=== PATIENT | female | born 1965 | race Caucasian/White ===

== ENCOUNTER 2023-08-07 13:48 | Emergency (ER) | payer BC, SELFPAY ==
[2023-08-07 13:56] VITALS: BP 139/52; PULSE 87; RESP 18; TEMP 36.6; O2SAT 97; BMI 37.8
--- NOTE | 2023-08-07 14:09 | ED_ITS ---
Discharge Plan Disposition Patient Disposition: Home, Self-Care Condition: Good Prescriptions Prescriptions: No Action cyclobenzaprine [Flexeril] 10 mg Tablet 10 mg PO TID PRN (Reason: Pain) citalopram [Celexa] 20 mg Tablet 20 mg PO DAILY losartan 25 mg Tablet 25 mg PO DAILY loratadine [Claritin] 10 mg Tablet 10 mg PO DAILY Vitamin D3 100 mcg (4,000 unit) Capsule 50,000 unit PO WEEKLY omeprazole 20 mg Tablet,Disintegrat, Delay Rel 20 mg PO DAILY Referrals Follow up/Referrals: Nate Tabor [Primary Care Provider] - See instructions Activity Restrictions/Add. Instructions Additional Instructions/Restrictions: Rest ice elevation as needed for symptomatic treatment along with alternating Tylenol every 4 hours Motrin as needed for pain and swelling. Return to ER or P for further evaluation if any symptoms worsen or change. Clinical Impressions Clinical Impression: Contusion of knee, right Qualifiers: Encounter type: initial encounter Qualified Code(s): S80.01XA - Contusion of right knee, initial encounter Abrasion of knee, right Qualifiers: Encounter type: initial encounter Qualified Code(s): S80.211A - Abrasion, right knee, initial encounter Discharge ED Provider: Kaden Oglesby General Adult HPI <TIERA Shirley - Last Filed: 08/07/23 14:54> General Chief complaint: Fall Stated complaint: AO3/19, pain in Rt knee Time Seen by Provider: 08/07/23 13:50 Mode of Arrival: Wheelchair Source of Information: Patient Limitations: No Limitations Description of Symptoms (Recalled from ER Triage Doc. by RN): Pt. here with compaints of right leg/ knee pain from a fall about 20 minutes ago. She was getting out of her car and got tangled up in her purse straps and feel on the concrete. She denies hitting her head or LOC. She did scrap her knee on the concrete and has an abrasion. History of Present Illness HPI narrative: Patient tripped and fell a day and right knee. She is able to bear weight immediately after currently. She denies chest pain fever chills hemoptysis hematochezia melena via consciousness. Related Data Home Medications Medication Instructions Recorded Confirmed cholecalciferol (vitamin D3) 100 50,000 unit PO WEEKLY 08/07/23 08/07/23 mcg (4,000 unit) capsule citalopram 20 mg tablet (Celexa) 20 mg PO DAILY 08/07/23 08/07/23 cyclobenzaprine 10 mg tablet 10 mg PO TID PRN Pain 08/07/23 08/07/23 loratadine 10 mg tablet (Claritin) 10 mg PO DAILY 08/07/23 08/07/23 losartan 25 mg tablet 25 mg PO DAILY 08/07/23 08/07/23 omeprazole 20 mg delayed 20 mg PO DAILY 08/07/23 08/07/23 release,disintegrating tablet Allergies Allergy/AdvReac Type Severity Reaction Status Date / Time No Known Allergies Allergy Verified 08/07/23 14:05 [facility] <TIERA Shirley - Last Filed: 08/07/23 14:54> [facility] Disclaimer: The information contained in this section may have been updated after the patient was seen, as this information can be updated by other users. Medical History (Updated 08/07/23 @ 14:47 by TIERA Shirley) Vitamin D deficiency Back pain Depression Allergies GERD (gastroesophageal reflux disease) Hypertension Carpal tunnel syndrome on both sides Surgical History (Updated 08/07/23 @ 14:05 by Sivan Buckner RN) History of carpal tunnel release of both wrists Previous back surgery History of cholecystectomy History of appendectomy Social History (Updated 08/07/23 @ 14:05 by Sivan Buckner RN) Smoking Status: Current every day smoker alcohol intake: never current occupational status: disabled Travel in the last 8 weeks: None <TIERA Shirlye - Last Filed: 08/07/23 14:54> ROS Obtained: Yes Systems reviewed as appropriate & no additional complaints except as documented Physical Exam <TIERA Shirley - Last Filed: 08/07/23 14:54> General General appearance: alert and in no apparent distress Head Head exam: atraumatic and normal inspection Eye Eye exam: Present normal appearance Respiratory Respiratory exam: Present normal lung sounds bilaterally Cardiovascular Cardiovascular exam: Present regular rate and normal rhythm Neurological Exam Neurological exam: Present alert and oriented X3 Other Other exam information: 300 extremities are intact grossly to exam full range of motion. No signs of trauma or deformity. In the right lower extremity there is an abrasion anterior portion infrapatellar area that is currently hemostatic. No bony deformity n oted. There is tenderness to palpation about the patella plateau. No joint effusion. Patient neurovascular intact. Medical Decision Making <TIERA Shirley - Last Filed: 08/07/23 14:54> Medical Records Medical records reviewed: Yes I reviewed the patient's medical records. Handy Inquiry Pt receiving controlled substance: No Vital Signs: 08/07/23 13:56 08/07/23 14:55 Temperature 97.8 F 97.8 F Temperature Source Oral Pulse Rate 96 H Pulse Rate [Right Brachial] 87 Respiratory Rate 18 16 Blood Pressure 112/61 Blood Pressure [Right Arm] 139/52 L Blood Pressure Mean [Right Arm] 81 Blood Pressure Source Automatic Cuff Blood Pressure Source [Right Arm] Automatic Cuff Blood Pressure Position [Right Arm] Sitting 02 Sat by Pulse Oximetry 97 Oxygen Delivery Method Room Air Room Air Orders (Tests/Meds): ORDERS Category Date Time Status Knee XR right 3 views [XR knee RT 3V] Stat Exams 08/07/23 14:11 Taken Medical Decision Narrative: In summary patient is a 58-year-old female who presents to the emergency dep artment for evaluation of an accidental fall right knee contusion. Patient is dynamically stable upon arrival, afebrile. Physical exam is focally positive for skin abrasion patellar anterior lower extremity. No bony deformity noted. Patient is neurovascular intact distally.. Differential diagnosis includes superficial abrasion, contusion, fracture etc. Initial workup will be conducted with radiographic imaging. No interventions required currently. Initial workup reviewed by me and my informal interpretation of her plain film x-ray shows no acute fracture or effusion radiologist read pending. Given this appropriate for discharge with instructions for ice as needed for swelling along with Tylenol alternating with with Motrin as needed for pain and swelling. <Kaden Oglesby MD - Last Filed: 08/07/23 15:43> Vital Signs: 08/07/23 13:56 08/07/23 14:55 Temperature 97.8 F 97.8 F Temperature Source Oral Pulse Rate 96 H Pulse Rate [Right Brachial] 87 Respiratory Rate 18 16 Blood Pressure 112/61 Blood Pressure [Right Arm] 139/52 L Blood Pressure Mean [Right Arm] 81 Blood Pressure Source Automatic Cuff Blood Pressure Source [Right Arm] Automatic Cuff Blood Pressure Position [Right Arm] Sitting 02 Sat by Pulse Oximetry 97 Oxygen Delivery Method Room Air Room Air Orders (Tests/Meds): ORDERS Category Date Time Status Knee XR right 3 views [XR knee RT 3V] Stat Exams 08/07/23 14:11 Taken Medical Decision Narrative: In summary patient is a 58-year-old female who presents to the emergency department for evaluation of an accidental fall right knee contusion. Patient is dynamically stable upon arrival, afebrile. Physical exam is focally positive for skin abrasion patellar anterior lower extremity. No bony deformity noted. Patient is neurovascular intact distally.. Differential diagnosis includes superficial abrasion, contusion, fracture etc. Initial workup will be conducted with radiographic imaging. No interventions required currently. Initial workup reviewed by me and my informal interpretation of her plain film x-ray shows no acute fracture or effusion radiologist read pending. Given this appropriate for discharge with instructions for ice as needed for swelling along with Tylenol alternating with with Motrin as needed for pain and swelling. I was consulted by the BOB, and we discussed the complexity of the problems being addressed. I approved the treatment and management plan for this patient?s care in the Emergency Department, thus performing a substantive portion of the medical decision making. Kaden Oglesby MD Critical Care <TIERA Shirley - Last Filed: 08/07/23 14:54> Critical Care Time Critical Care Time: No
--- NOTE | 2023-08-07 14:11 | XR_ITS ---
FINAL REPORT CLINICAL HISTORY: fall, contusion FINDINGS: Right knee Three views were obtained. There is no acute fracture or dislocation. The joint spaces appear normal. No joint effusion is identified. No soft tissue abnormality is identified. IMPRESSION: No acute process. Reviewed, Interpreted and Dictated by Kendrick Jeong III, MD Transcribed by Katina Mckeon Authenticated and [facility]
--- NOTE | 2023-08-07 14:27 | PC.NURSE ---
PT gone to RAD via wheelchair
--- NOTE | 2023-08-07 14:35 | PC.NURSE ---
PT returned from RAD
[2023-08-07 14:55] VITALS: BP 112/61; PULSE 96; RESP 16; TEMP 36.6; O2SAT 95
== END 2023-08-07 14:57 | disposition home or self-care (01) ==
PROVIDERS: Emergency Provider Emergency Medicine; PCP Physician Assistant
DX: S80.01XA Contusion of right knee, initial encounter (principal); M79.604 Pain in right leg; V48.4XXA Person boarding or alighting a car injured in noncollision transport accident, initial encounter; I10 Essential (primary) hypertension; K21.9 Gastro-esophageal reflux disease without esophagitis; F17.200 Nicotine dependence, unspecified, uncomplicated
CPT/HCPCS: 73562; 99283

== ENCOUNTER 2023-09-27 10:56 | Outpatient (POV) | payer BC, SELFPAY ==
[2023-09-27 11:01] VITALS: BP 169/87; PULSE 84; RESP 18; O2SAT 96; BMI 37.8
--- NOTE | 2023-09-27 11:20 | A.OFFVIS_ITS ---
HPI Data of Consult Patient: new to practice Consult date: 09/27/23 Requesting Physician: Jahaira Hwang APRN Primary Care Provider: Nate Tabor Consult Narrative Reason for consult: Low back pain pain History of present illness: Ms. Morgan is a 58 year old female who presents today as a new patient. She is a referral from [facility]. Today she rates her pain a 7 out of 10. Patient states her pain is all in her low back with radiating pain to her bilateral lower extremities. Patient does state this is a aching sensation with heaviness in her legs and will have numbness and tingling with prolonged walking or standing. Patient states this has been going on for years and progressively worsened. Patient did end up having 2 back surgeries including a discectomy and a fusion in the past. She states that she has been back to the neurosurgeon and he is stating that she may benefit from additional fusion above her prior 1. Patient states that she would like to try conservative treatment first. Patient does state the pain interferes with her ability perform activities of daily living such as cooking and cleaning. She states even the smallest activities such as cleaning around her house takes it out of her and she has to stop and take a break. Patient has tried [id number] Tylenol and ibuprofen along with heat and ice and topicals with minimal relief. Patient has had physical therapy that made her symptoms worsen and has also been to the chiropractor however during the 1 visit she went they cracked her neck and it scared her as to where she did not ever go back. Patient has tried to continue at home exercising and stretching for longer than 6 weeks with minimal impro vement.Patient is prescribed gabapentin from an outside provider. Her Handy has been reviewed and is appropriate. CC: Jahaira Hwang APRN [facility] Disclaimer: The information contained in this section may have been updated after the patient was seen, as this information can be updated by other users. Medical History (Updated 09/27/23 @ 12:00 by Jahaira Hwang APRN) Vitamin D deficiency Back pain Depression Allergies GERD (gastroesophageal reflux disease) Hypertension Carpal tunnel syndrome on both sides Surgical History (Updated 09/27/23 @ 11:22 by Jahaira Hwang APRN) History of carpal tunnel release of both wrists Previous back surgery History of cholecystectomy History of appendectomy Social History Smoking Status: Current every day smoker alcohol intake: never current occupational status: other Travel in the last 8 weeks: None Review of Systems Review of Systems Review of systems:: pertinent systems reviewed and negative unless documented below Review of systems (narrative): Review of Systems: General: No recent weight changes, no fever, no sleep disturbances Respiratory: No cough, no shortness of air, no recurring pulmonary infections Cardiovascular/peripheral vascular: No chest pain, no palpitations, no edema, no shortness of breath Gastrointestinal: No new onset incontinence, normal bowel movements reported Genitourinary: No new onset incontinence Musculoskeletal: Low back pain, bilateral leg pain Psychiatric: [Normal mood/affect] Neurological: [Denies weakness in extremities], [denies balance issues] Meds Home Medications and Allergies Home Medications Medication Instructions Recorded Confirmed Type cholecalciferol (vitamin D3) 100 50,000 unit PO WEEKLY 08/07/23 09/27/23 History mcg (4,000 unit) capsule citalopram 20 mg tablet (Celexa) 20 mg PO DAILY 08/07/23 09/27/23 History cyclobenzaprine 10 mg tablet 10 mg PO TID PRN Pain 08/07/23 09/27/23 History loratadine 10 mg tablet (Claritin) 10 mg PO DAILY 08/07/23 09/27/23 History losartan 25 mg tablet 25 mg PO DAILY 08/07/23 09/27/23 History omeprazole 20 mg delayed 20 mg PO DAILY 08/07/23 09/27/23 History release,disintegrating tablet New Prescriptions to Start Prescriptions: Allergies Allergy/AdvReac Type Severity Reaction Status Date / Time No Known Allergies Allergy Verified 09/27/23 11:01 Objective Narrative: Physical Exam: General: Alert and oriented x3, no acute distress, pleasant and cooperative Lungs: Respirations even and unlabored, symmetrical chest expansion Eyes: PERRL Musculoskeletal: Flexion and extension of lumbar [spine] somewhat guarded secondary to pain, [antalgic gait noted] Neurological: Speech clear, no gross sensory deficit Additional findings Additional findings: 06/04/2023 Lumbar MRI without contrast Findings: Benign cystic changes and atrophy of the right kidney are noted. Paraspinal soft tissues otherwise grossly unremarkable. Marrow signal generally age-appropriate. Distal cord and conus medullaris have a grossly normal appearance at the tip of the conus at the level of L1-L2. T9-10 through T12-L1 disc are unremarkable and foramina patent. L1-L2: Disc desiccation and narrowing with mild circumferential disc bulge. Mild hypertrophic ligamentum facet changes. No significant spinal stenosis. Foramina patent L2-L3: Disc intact foramina patent. Mild hypertrophic ligament facet changes L3-L4: Disc desiccation without degenerative narrowing. Mild to moderate circumferential disc bulge delimited centrally by the PLL. Moderate hypertrophic ligamentum facet changes contouring the thecal sac. These factors result in mild spinal stenosis. Moderate left and mild right foraminal stenosis by endplate osteophytic disc complex L4-L5: Grade 1 anterior listhesis L4. Disc desiccation of the disc with mild degenerative narrowing. Moderate circumferential disc bulge. Advanced hypertrophic ligament changes and facet changes triangulating the thecal sac. Mild effusion of the facet joints without synovial cyst formation. These factors combined to produce severe spinal stenosis to 5 to 6 mm. Moderate bilateral foraminal stenosis by endplate osteophytic disc complex. L5-S1: Advanced degenerative narrowing of the disc. Prominent type II degenerative endplate changes. There is circumferential disc bulge partially overlaid by endplate spur. There is a right paracentral protrusion augmenting the disc bulge and extending below the level of the disc space. Advanced hypertrophic ligamentum facet changes. These factors result in moderate to severe spinal stenosis. Disc protrusion approximates the left S1 nerve root and displaces the right S1 nerve root. Severe bilateral foraminal stenosis by endplate osteophytic disc complex. Assessment and Plan *Assessment and plan (1) Degenerative disc disease, lumbar: Status: Acute Category: Medical Code(s): M51.36 - Other intervertebral disc degeneration, lumbar region (2) History of lumbar discectomy: Status: Acute Category: Surgical Code(s): Z98.890 - Other specified postprocedural states (3) History of lumbar fusion: Status: Acute Category: Surgical Code(s): Z98.1 - Arthrodesis status (4) Chronic low back pain: Status: Acute Qualifiers: Back pain laterality: bilateral Sciatica presence: with sciatica Sciatica laterality: sciatica of right side Qualified Code(s): M54.41 - Lumbago with sciatica, right side; G89.29 - Other chronic pain Category: Medical Code(s): M54.50 - Low back pain, unspecified; G89.29 - Other chronic pain (5) Lumbar facet arthropathy: Status: Acute Category: Medical Code(s): M47.816 - Spondylosis without myelopathy or radiculopathy, lumbar region (6) Lumbar spinal stenosis: Status: Acute Qualifiers: Neurogenic claudication status: with neurogenic claudication Qualified Code(s): M48.062 - Spinal stenosis, lumbar region with neurogenic claudication Category: Medical Code(s): M48.061 - Spinal stenosis, lumbar region without neurogenic claudication (7) Lumbar spondylosis: Status: Acute Category: Medical Code(s): M47.816 - Spondylosis without myelopathy or radiculopathy, lumbar region Plan Patient is experiencing significant pain throughout her low back with radiating symptoms down into her lower extremities. Patient did have limited range of motion of her lumbar spine with significant findings on her MRI showing the most stenosis at the L4-L5 and L5-S1 levels. I have discussed with the patient that she may benefit from a lumbar epidural. Risk and benefits were discussed with patient and she would like to proceed forward with this plan of care. Patient is not on any blood thinners. Patient has tried and failed conservative therapy including failed back surgery. Patient will be scheduled for a LESI L4-L5 under fluoroscopy. Patient has been instructed to contact the clinic with any concerns before the next appointment. Dr. Marsh has reviewed this note and agrees with this plan of care. This note was dictated using voice recognition software and make contain errors or omissions.
== END 2023-09-27 23:59 | disposition home or self-care (01) ==
LOC: SC.PAIN 10:57
PROVIDERS: PCP Physician Assistant; Visit Provider Nurse Practitioner Family
DX: M51.36 Other intervertebral disc degeneration, lumbar region (principal); Z98.890 Other specified postprocedural states; Z98.1 Arthrodesis status; M54.41 Lumbago with sciatica, right side; G89.29 Other chronic pain; M47.816 Spondylosis without myelopathy or radiculopathy, lumbar region; M48.062 Spinal stenosis, lumbar region with neurogenic claudication; M43.26 Fusion of spine, lumbar region
CPT/HCPCS: 99202; G0463

== ENCOUNTER 2023-10-16 14:14 | Day surgery (SDC) | payer BC, SELFPAY ==
[2023-10-16 14:40] VITALS: BP 150/87; PULSE 95; RESP 18; TEMP 36.6; O2SAT 96; BMI 37.8
--- NOTE | 2023-10-16 14:56 | P.PCN_ITS ---
Procedure Date: 10/16/23 Time: 14:50 Anesthesiologist:: Rafat Caceres CRNA Complications:: None Pre-procedure Diagnosis:: Degenerative disc lumbar spine multilevels. Lumbar radiculopathy. Lumbar spondylosis. Multilevel lumbar facet arthropathy. Lumbar postlaminectomy syndrome. Post-procedure Diagnosis:: Same. Indications for Procedure:: Patient is a very pleasant 58-year-old female comes our clinic today for lumbar epidural steroid injection. Patient is status post thoracic spine surgeries including discectomy and fusion in the past. She reports low back pain as well as bilateral hip and leg radicular symptoms. She rates her pain 7/10. Procedure Details:: Procedure: Lumbar epidural steroid injection under fluoroscopy Informed consent was obtained and the risks and benefits of the procedure were explained to the patient. The patient was taken to the procedure room and noninvasive monitors placed, including noninvasive blood pressure cuff and pulse oximeter. The back was viewed using C-arm Fluoroscopy and prepped using C hloraprep as a cleansing solution and the L4-L5 interspace was palpated. Skin and subcutaneous tissues were anesthetized using lidocaine 1.5% and a 25-gauge needle. After this, an 18-gauge Touhy epidural needle was placed into the L4-L5 interspace and advanced using fluoroscopic guidance and loss of resistance to air until the epidural space was encountered. After confirmation of needle placement in the epidural space, with dye, a solution containing normal saline, 3 mL and Depo-Medrol 80 mg were incrementally injected into the lumbar epidural space. The patient tolerated the procedure well with no complications. The patient was observed in the Pain Clinic and then discharged home neurologically intact. Plan and Disposition:: Patient was discharged without incident.
[2023-10-16 15:04] VITALS: BP 165/85; PULSE 80; RESP 18; O2SAT 98
[2023-10-16] MEDS: methylPREDNISolone ACETATE 80MG/ML VIAL 80 MG (15:23)
== END 2023-10-16 15:05 | disposition home or self-care (01) ==
PROVIDERS: PCP Physician Assistant; Visit Provider Nurse Anesthetist, Certified Registered
DX: M51.16 Intervertebral disc disorders with radiculopathy, lumbar region (principal); M47.26 Other spondylosis with radiculopathy, lumbar region; M96.1 Postlaminectomy syndrome, not elsewhere classified
CPT/HCPCS: 62323; J1010

== ENCOUNTER 2023-11-01 12:59 | Outpatient (POV) | payer BC, SELFPAY ==
[2023-11-01 13:24] VITALS: BP 162/84; BP 184/85; PULSE 77; RESP 16; O2SAT 96; BMI 37.8
--- NOTE | 2023-11-01 13:47 | A.OFFVIS_ITS ---
[facility] Pain Management SOAP Note Subjective:: Patient is a pleasant 58-year-old female who presents today for follow-up of lumbar epidural steroid injection L4-L5 under fluoroscopy on 10/16/2023. Today she rates her pain a 2 out of 10. Patient states she has had at least 75% improvement following this injection and feels like it is still helping. Patient does state that it has taken a couple days for it initially to kick in but she has been able to increase her activity with overall decreased pain and feels much more functional. Her Handy has been reviewed and is appropriate. Review of Systems: General: No recent weight changes, no fever, no sleep disturbances Respiratory: No cough, no shortness of air, no recurring pulmonary infections Cardiovascular/peripheral vascular: No chest pain, no palpitations, no edema, no shortness of breath Gastrointestinal: No new onset incontinence, normal bowel movements reported Genitourinary: No new onset incontinence Musculoskeletal: Low back pain Psychiatric: [Normal mood/affect] Neurological: [Denies weakness in extremities], [denies balance issues] Objective:: Physical Exam: General: Alert and oriented x3, no acute distress, pleasant and cooperative Lungs: Respirations even and unlabored, symmetrical chest expansion Eyes: PERRL Musculoskeletal: Flexion and extension of lumbar [spine] somewhat guarded secondary to pain, [antalgic gait noted] Neurological: Speech clear, no gross sensory deficit Assessment:: Degenerative disc disease of lumbar spine with lumbar radiculopathy symptoms Plan:: Patient has had significant improvement following her lumbar epidural and does not require any additional injection therapy at this time. Patient will return to clinic in 1 month for reevaluation of symptoms and plan of care. Patient has been instructed to contact the clinic with any concerns before the next appointment. Dr. Marsh has reviewed this note and agrees with this plan of care. This note was dictated using voice recognition software and make contain errors or omissions. [facility] Disclaimer: The information contained in this section may have been updated after the patient was seen, as this information can be updated by other users. Medical History Vitamin D deficiency Back pain Depression Allergies GERD (gastroesophageal reflux disease) Hypertension Carpal tunnel syndrome on both sides Surgical History History of carpal tunnel release of both wrists Previous back surgery History of cholecystectomy History of appendectomy Social History Smoking Status: Current every day smoker alcohol intake: never current occupational status: other Travel in the last 8 weeks: None
== END 2023-11-01 23:59 | disposition home or self-care (01) ==
LOC: SC.PAIN 13:00
PROVIDERS: PCP Physician Assistant; Visit Provider Nurse Practitioner Family
DX: M51.16 Intervertebral disc disorders with radiculopathy, lumbar region (principal)
CPT/HCPCS: 99212; G0463

== ENCOUNTER 2023-11-29 13:50 | Outpatient (POV) | payer BC, SELFPAY ==
[2023-11-29 14:00] VITALS: BP 182/85; BP 199/80; PULSE 78; RESP 18; O2SAT 96; BMI 37.8
--- NOTE | 2023-11-29 14:29 | EXP.PAIN.SOA ---
[facility] Disclaimer: The information contained in this section may have been updated after the patient was seen, as this information can be updated by other users. Medical History (Updated 11/29/23 @ 14:32 by Jahaira Hwang APRN) Vitamin D deficiency Back pain Depression Allergies GERD (gastroesophageal reflux disease) Hypertension Carpal tunnel syndrome on both sides Surgical History History of carpal tunnel release of both wrists Previous back surgery History of cholecystectomy History of appendectomy Social History Smoking Status: Current every day smoker alcohol intake: never current occupational status: other Travel in the last 8 weeks: None PM Subjective & Objective Subjective Subjective:: Patient is a pleasant 58-year-old female who presents today with follow-up. Today she rates her pain a 4 out of 10. Patient denies any new trauma or injury. Patient does state that she feels like her last injection is starting to wear off. Patient states that she has been experiencing little bit more pain and states that there have been random moments of where the pain will get much worse of a 6 out of 10. Patient does state that she would like to go ahead and get a repeat injection because she did have some much improvement with her last lumbar epidural of 75%. Patient had this done in September. Patient states that her pain is an aching, throbbing sensation with numbness and tingling down into her extremities and does interfere with her ability perform activities of daily living such as cooking and cleaning. Patient does state from her last visit she did get started on Mounjaro injections and that these are given once a week. She states the initial injection she had significant swelling in her leg on the left side however since then it has resolved. Her Handy has been reviewed and is appropriate. Review of Systems: General: No recent weight changes, no fever, no sleep disturbances Respiratory: No cough, no shortness of air, no recurring pulmonary infections Cardiovascular/peripheral vascular: No chest pain, no palpitations, no edema, no shortness of breath Gastrointestinal: No new onset incontinence, normal bowel movements reported Genitourinary: No new onset incontinence Musculoskeletal: Low back pain, leg pain Psychiatric: [Normal mood/affect] Neurological: [Denies weakness in extremities], [denies balance issues] Pain at rest (0-10 scale): 6 Objective Objective:: Physical Exam: General: Alert and oriented x3, no acute distress, pleasant and cooperative Lungs: Respirations even and unlabored, symmetrical chest expansion Eyes: PERRL Musculoskeletal: Flexion and extension of lumbar [spine] somewhat guarded secondary to pain, [antalgic gait noted] Neurological: Speech clear, no gross sensory deficit Has patient had previous pain injection?: No Conservative treatment options previously tried: Home exercise plan Length of treatment: More than 6 weeks and Prescription medications Length of treatment: More than 6 weeks Meds Home Medications and Allergies Home Medications Medication Instructions Recorded Confirmed Type cholecalciferol (vitamin D3) 100 50,000 unit PO WEEKLY 08/07/23 11/29/23 History mcg (4,000 unit) capsule citalopram 20 mg tablet (Celexa) 20 mg PO DAILY 08/07/23 11/29/23 History cyclobenzaprine 10 mg tablet 10 mg PO TID PRN Pain 08/07/23 11/29/23 History loratadine 10 mg tablet (Claritin) 10 mg PO DAILY 08/07/23 11/29/23 History losartan 25 mg tablet 25 mg PO DAILY 08/07/23 11/29/23 History omeprazole 20 mg delayed 20 mg PO DAILY 08/07/23 11/29/23 History release,disintegrating tablet New Prescriptions to Start Prescriptions: Allergies Allergy/AdvReac Type Severity Reaction Status Date / Time No Known Allergies Allergy Verified 09/27/23 11:01 Assessment and Plan *Assessment and plan (1) Lumbar spondylosis: Status: Acute Category: Medical Code(s): M47.816 - Spondylosis without myelopathy or radiculopathy, lumbar region (2) Lumbar spinal stenosis: Status: Acute Qualifiers: Neurogenic claudication status: with neurogenic claudication Qualified Code(s): M48.062 - Spinal stenosis, lumbar region with neurogenic claudication Category: Medical Code(s): M48.061 - Spinal stenosis, lumbar region without neurogenic claudication (3) Lumbar facet arthropathy: Status: Acute Category: Medical Code(s): M47.816 - Spondylosis without myelopathy or radiculopathy, lumbar region (4) Chronic low back pain: Status: Acute Qualifiers: Back pain laterality: bilateral Sciatica presence: with sciatica Sciatica laterality: sciatica of right side Qualified Code(s): M54.41 - Lumbago with sciatica, right side; G89.29 - Other chronic pain Category: Medical Code(s): M54.50 - Low back pain, unspecified; G89.29 - Other chronic pain (5) History of lumbar fusion: Status: Acute Category: Surgical Code(s): Z98.1 - Arthrodesis status (6) History of lumbar discectomy: Status: Acute Category: Surgical Code(s): Z98.890 - Other specified postprocedural states (7) Degenerative disc disease, lumbar: Status: Acute Category: Medical Code(s): M51.36 - Other intervertebral disc degeneration, lumbar region (8) Lumbar radiculopathy: Status: Acute Category: Medical Code(s): M54.16 - Radiculopathy, lumbar region Plan Patient is starting to experience worsening pain in her low back and legs with limited range of motion. I have discussed with the patient risk and benefits of the repeat lumbar epidural steroid injection and she would like to proceed forward with this plan of care. Patient is not on any blood thinners. I have counseled her that we will confirm that the Mounjaro will not interfere with this injection as well. Patient is agreeable to this. I have also counseled the patient that we will plan on doing her injection around January 15 which would allow for the 3-month window between her injections. Patient is agreeable to this. Patient has nearly gone 2 months of improvement at 75% relief with her last injection that was done in September. Patient has continued at home stretching exercise for longer than 6 weeks between injections. Patient will be scheduled for a lumbar epidural steroid injection L4-L5 under fluoroscopy. Patient has been instructed to contact the clinic with any concerns before the next appointment. Dr. Marsh has reviewed this note and agrees with this plan of care. This note was dictated using voice recognition software and make contain errors or omissions.
== END 2023-11-29 23:59 | disposition home or self-care (01) ==
LOC: SC.PAIN 13:51
PROVIDERS: PCP Physician Assistant; Visit Provider Nurse Practitioner Family
DX: M48.061 Spinal stenosis, lumbar region without neurogenic claudication; M51.16 Intervertebral disc disorders with radiculopathy, lumbar region; Z98.1 Arthrodesis status; Z98.890 Other specified postprocedural states; F17.210 Nicotine dependence, cigarettes, uncomplicated; Z73.89 Other problems related to life management difficulty; Z79.899 Other long term (current) drug therapy; M47.26 Other spondylosis with radiculopathy, lumbar region
CPT/HCPCS: 99212; G0463

== ENCOUNTER 2024-01-22 13:18 | Day surgery (SDC) | payer BC, SELFPAY ==
[2024-01-22 13:39] VITALS: BP 124/75; PULSE 76; RESP 16; TEMP 36.8; O2SAT 95; BMI 37.8
[2024-01-22 13:58] VITALS: BP 140/85; PULSE 85; RESP 18; O2SAT 98
[2024-01-22] MEDS: methylPREDNISolone ACETATE 80MG/ML VIAL 80 MG (13:58)
--- NOTE | 2024-01-22 13:58 | EXP.PAIN.PRO ---
Procedure Date: 01/22/24 Time: 13:50 Anesthesiologist:: Rafat Caceres CRNA Complications:: None Pre-procedure Diagnosis:: Degenerative disc lumbar spine pathologies. Lumbar radiculopathy. Lumbar spondylosis. Multilevel lumbar facet arthropathy. Post-procedure Diagnosis:: Same. Indications for Procedure:: Patient very pleasant 58-year-old female comes our clinic today for repeat lumbar epidural steroid injection at the L4-5 level. Patient reports 6 to 8 weeks of significant improvement after her first epidural steroid injection same level. She describes low lumbar back pain as well as bilateral upper leg radicular symptoms at times. She rates her pain 7/10. Procedure Details:: Procedure: Lumbar epidural steroid injection under fluoroscopy Informed consent was obtained and the risks and benefits of the procedure were explained to the patient. The patient was taken to the procedure room and noninvasive monitors placed, including noninvasive blood pressure cuff and pulse oximeter. The back was viewed using C-arm Fluoroscopy and prepped using Chloraprep as a cleansing solution and the L4-L5 interspace was palpated. Skin and subcutaneous tissues were anesthetized using lidocaine 1.5% and a 25-gauge needle. After this, an 18-gauge Touhy epidural needle was placed into the L4-L5 interspace and advanced using fluoroscopic guidance and loss of resistance to air until the epidural space was encountered. After confirmation of needle placement in the epidural space, with dye, a solution containing normal saline, 3 mL and Depo-Medrol 80 mg were incrementally injected into the lumbar epidural space. The patient tolerated the procedure well with no complications. The patient was observed in the Pain Clinic and then discharged home neurologically intact. Plan and Disposition:: Patient was discharged out incident.
[2024-01-22 14:00] VITALS: BP 119/60; BP 140/85; PULSE 78; PULSE 85; RESP 18; O2SAT 96; O2SAT 98
== END 2024-01-22 14:00 | disposition home or self-care (01) ==
PROVIDERS: PCP Physician Assistant; Visit Provider Nurse Anesthetist, Certified Registered
DX: M51.16 Intervertebral disc disorders with radiculopathy, lumbar region (principal); M47.26 Other spondylosis with radiculopathy, lumbar region
CPT/HCPCS: 62323; J1010

== ENCOUNTER 2024-02-14 13:30 | Outpatient (POV) | payer BC, SELFPAY ==
[2024-02-14 13:44] VITALS: BP 156/64; PULSE 85; RESP 18; O2SAT 97; BMI 37.8
--- NOTE | 2024-02-14 13:52 | A.OFFVIS_ITS ---
[facility] Disclaimer: The information contained in this section may have been updated after the patient was seen, as this information can be updated by other users. Medical History Vitamin D deficiency Back pain Depression Allergies GERD (gastroesophageal reflux disease) Hypertension Carpal tunnel syndrome on both sides Surgical History History of carpal tunnel release of both wrists Previous back surgery History of cholecystectomy History of appendectomy Social History Smoking Status: Current every day smoker alcohol intake: never current occupational status: other Travel in the last 8 weeks: None PM Subjective & Objective Subjective Subjective:: Patient is a pleasant 58-year-old female who presents today for follow-up of lumbar epidural steroid injection L4-L5 on 01/22/2024. Today she rates her pain a 7 out of 10. Patient does state that she did get approximately 50% improvement from this injection and that it is helping some still however it did not do as well as her last 1 with 75% relief. Patient does state that that she has been back to her PCP and they did just recently start her back on gabapentin 100 mg 3 times a day. She does state that this is helping some but on the really bad days she feels like she could use additional medication. Patient is currently on Flexeril however feels like she has been on this for years and that she really does not notice improvement any longer. Her Handy has been reviewed and is appropriate.\ Review of Systems: General: No recent weight changes, no fever, no sleep disturbances Respiratory: No cough, no shortness of air, no recurring pulmonary infections Cardiovascular/peripheral vascular: No chest pain, no palpitations, no edema, no shortness of breath Gastrointestinal: No new onset incontinence, normal bowel movements reported Genitourinary: No new onset incontinence Musculoskeletal: Low back pain, leg pain Psychiatric: [Normal mood/affect] Neurological: [Denies weakness in extremities], [denies balance issues] Pain at rest (0-10 scale): 7 Objective Objective:: Physical Exam: General: Alert and oriented x3, no acute distress, pleasant and cooperative Lungs: Respirations even and unlabored, symmetrical chest expansion Eyes: PERRL Musculoskeletal: Flexion and extension of lumbar [spine] somewhat guarded secondary to pain, [antalgic gait noted] Neurological: Speech clear, no gross sensory deficit Has patient had previous pain injection?: Yes Percent improvement in pain since last injection: 50% Conservative treatment options previously tried: Home exercise plan Length of treatment: Longer than 6 weeks Meds Home Medications and Allergies Home Medications ?Medication ?Instructions ?Recorded ?Confirmed ?Type cholecalciferol (vitamin D3) 100 50,000 unit PO WEEKLY 08/07/23 02/14/24 History mcg (4,000 unit) capsule citalopram 20 mg tablet (Celexa) 20 mg PO DAILY 08/07/23 02/14/24 History cyclobenzaprine 10 mg tablet 10 mg PO TID PRN Pain 08/07/23 02/14/24 History loratadine 10 mg tablet (Claritin) 10 mg PO DAILY 08/07/23 02/14/24 History losartan 25 mg tablet 25 mg PO DAILY 08/07/23 02/14/24 History omeprazole 20 mg delayed 20 mg PO DAILY 08/07/23 02/14/24 History release,disintegrating tablet New Prescriptions to Start Prescriptions: Allergies Allergy/AdvReac Type Severity Reaction Status Date / Time No Known Allergies Allergy Verified 01/22/24 13:39 Assessment and Plan *Assessment and plan (1) Lumbar radiculopathy: Status: Acute Category: Medical Code(s): M54.16 - Radiculopathy, lumbar region (2) Chronic low back pain: Status: Acute Qualifiers: Back pain laterality: bilateral Sciatica presence: with sciatica Sciatica laterality: sciatica of right side Qualified Code(s): M54.41 - Lumbago with sciatica, right side; G89.29 - Other chronic pain Category: Medical Code(s): M54.50 - Low back pain, unspecified; G89.29 - Other chronic pain Plan Patient was counseled that we can always try and repeat the lumbar epidurals in future to see if she gets again the more significant improvement of 75 that her injection before last gave. Patient agrees with this. I will send in a prescription of baclofen 10 mg 3 times daily and provide a 1 month supply of this medication. Patient will return to clinic in 1 month for reevaluation of symptoms and plan of care. Patient has been instructed to contact the clinic with any concerns before the next appointment. Dr. Marsh has reviewed this note and agrees with this plan of care. This note was dictated using voice recognition software and make contain errors or omissions. All injections are used with Lidocaine or Bupivacaine and Depo Medrol.
== END 2024-02-14 23:59 | disposition home or self-care (01) ==
PROVIDERS: PCP Physician Assistant; Visit Provider Nurse Practitioner Family
DX: M54.16 Radiculopathy, lumbar region (principal); M54.41 Lumbago with sciatica, right side; G89.29 Other chronic pain; F17.210 Nicotine dependence, cigarettes, uncomplicated
CPT/HCPCS: 99212; G0463

== ENCOUNTER 2024-03-14 11:26 | Outpatient (POV) | payer BC, SELFPAY ==
[2024-03-14 11:55] VITALS: BP 154/81; PULSE 75; RESP 16; O2SAT 97; BMI 37.8
--- NOTE | 2024-03-14 12:31 | A.OFFVIS_ITS ---
[facility] Disclaimer: The information contained in this section may have been updated after the patient was seen, as this information can be updated by other users. Medical History Vitamin D deficiency Back pain Depression Allergies GERD (gastroesophageal reflux disease) Hypertension Carpal tunnel syndrome on both sides Surgical History History of carpal tunnel release of both wrists Previous back surgery History of cholecystectomy History of appendectomy Social History Smoking Status: Current every day smoker alcohol intake: never current occupational status: other Travel in the last 8 weeks: None PM Subjective & Objective Subjective Subjective:: Patient is a pleasant 58-year-old female who presents today for follow-up. Today she rates her pain a 7 out of 10. Patient does state that she has noticed a little bit more pain in her low back that does radiate into her legs from her last visit. She does state that the baclofen 10 mg 3 times a day is helping. She is requesting refills today. Patient did get 50% relief with her last lumbar epidural that was done on 01 21 however the one prior to that did 75% improvement. Patient does state that in future she would like to try these injections again because they do improve on overall pain and give better function. Her Handy has been reviewed and is appropriate. Review of Systems: General: No recent weight changes, no fever, no sleep disturbances Respiratory: No cough, no shortness of air, no recurring pulmonary infections Cardiovascular/peripheral vascular: No chest pain, no palpitations, no edema, no shortness of breath Gastrointestinal: No new onset incontinence, normal bowel movements reported Genitourinary: No new onset incontinence Musculoskeletal: Low back pain Psychiatric: [Normal mood/affect] Neurological: [Denies weakness in extremities], [denies balance issues] Pain at rest (0-10 scale): 7 Objective Objective:: Physical Exam: General: Alert and oriented x3, no acute distress, pleasant and cooperative Lungs: Respirations even and unlabored, symmetrical chest expansion Eyes: PERRL Musculoskeletal: Flexion and extension of lumbar [spine] somewhat guarded secondary to pain, [antalgic gait noted] Neurological: Speech clear, no gross sensory deficit Has patient had previous pain injection?: No Conservative treatment options previously tried: Home exercise plan Length of treatment: Longer than 6 weeks Meds Home Medications and Allergies Home Medications ?Medication ?Instructions ?Recorded ?Confirmed ?Type cholecalciferol (vitamin D3) 100 50,000 unit PO WEEKLY 08/07/23 03/14/24 History mcg (4,000 unit) capsule citalopram 20 mg tablet (Celexa) 20 mg PO DAILY 08/07/23 03/14/24 History cyclobenzaprine 10 mg tablet 10 mg PO TID PRN Pain 08/07/23 03/14/24 History loratadine 10 mg tablet (Claritin) 10 mg PO DAILY 08/07/23 03/14/24 History losartan 25 mg tablet 25 mg PO DAILY 08/07/23 03/14/24 History omeprazole 20 mg delayed 20 mg PO DAILY 08/07/23 03/14/24 History release,disintegrating tablet baclofen 10 mg tablet 10 mg PO TID #90 tabs 02/14/24 03/14/24 Rx New Prescriptions to Start Prescriptions: Allergies Allergy/AdvReac Type Severity Reaction Status Date / Time No Known Allergies Allergy Verified 01/22/24 13:39 Assessment and Plan *Assessment and plan (1) Lumbar spinal stenosis: Status: Acute Qualifiers: Neurogenic claudication status: with neurogenic claudication Qualified Code(s): M48.062 - Spinal stenosis, lumbar region with neurogenic claudication Category: Medical Code(s): M48.061 - Spinal stenosis, lumbar region without neurogenic claudication (2) Lumbar spondylosis: Status: Acute Category: Medical Code(s): M47.816 - Spondylosis without myelopathy or radiculopathy, lumbar region (3) Lumbar radiculopathy: Status: Acute Category: Medical Code(s): M54.16 - Radiculopathy, lumbar region (4) Lumbar facet arthropathy: Status: Acute Category: Medical Code(s): M47.816 - Spondylosis without myelopathy or radiculopathy, lumbar region Plan I will refill the patient's baclofen and provide a 3-month supply of this medication. Patient will return to clinic in 1 month for reevaluation of symptoms and plan of care. Patient has been instructed to contact the clinic with any concerns before the next appointment. Dr. Marsh has reviewed this note and agrees with this plan of care. This note was dictated using voice recognition software and make contain errors or omissions. All injections are used with Lidocaine or Bupivacaine and Depo Medrol.
== END 2024-03-14 23:59 | disposition home or self-care (01) ==
PROVIDERS: Visit Provider Nurse Practitioner Family
DX: M48.062 Spinal stenosis, lumbar region with neurogenic claudication (principal); M47.26 Other spondylosis with radiculopathy, lumbar region; F17.210 Nicotine dependence, cigarettes, uncomplicated
CPT/HCPCS: 99212; G0463

== ENCOUNTER 2024-04-25 11:18 | Outpatient (POV) | payer BC, SELFPAY ==
[2024-04-25 11:38] VITALS: BP 153/84; PULSE 75; RESP 14; O2SAT 95; BMI 39.0
--- NOTE | 2024-04-25 11:56 | A.OFFVIS_ITS ---
[facility] Disclaimer: The information contained in this section may have been updated after the patient was seen, as this information can be updated by other users. Medical History Vitamin D deficiency Back pain Depression Allergies GERD (gastroesophageal reflux disease) Hypertension Carpal tunnel syndrome on both sides Surgical History History of carpal tunnel release of both wrists Previous back surgery History of cholecystectomy History of appendectomy Social History Smoking Status: Current every day smoker alcohol intake: never current occupational status: other Travel in the last 8 weeks: None PM Subjective & Objective Subjective Subjective:: Patient is a pleasant 58-year-old female who presents today for medication refill and worsening pain. She does rate her pain today a 7 out of 10. Patient states that it is still the same pain all in her low back with numbness and tingling radiating down into her lower extremities. Patient states it is fairly constant and does interfere with her ability perform activities of daily living such as cooking and cleaning. Patient did previously have her last lumbar epidural on January 22, 2024 that did provide 50% relief however the 1 previously before that did even do better with 75% relief lasting several months. Patient does state that she would like to see about repeating this injection and that she did even talk to her primary care and they agree with what we had discussed at her last visit. Patient is currently managed with baclofen 10 mg 3 times a day. She denies any side effects from this medication and is requesting a refill. Her Handy has been reviewed and is appropriate. Review of Systems: General: No recent weight changes, no fever, no sleep disturbances Respiratory: No cough, no shortness of air, no recurring pulmonary infections Cardiovascular/peripheral vascular: No chest pain, no palpitations, no edema, no shortness of breath Gastrointestinal: No new onset incontinence, normal bowel movements reported Genitourinary: No new onset incontinence Musculoskeletal: Low back pain, bilateral leg pain Psychiatric: [Normal mood/affect] Neurological: [Denies weakness in extremities], [denies balance issues] Pain at rest (0-10 scale): 7 Objective Objective:: Physical Exam: General: Alert and oriented x3, no acute distress, pleasant and cooperative Lungs: Respirations even and unlabored, symmetrical chest expansion Eyes: PERRL Musculoskeletal: Flexion and extension of lumbar [spine] somewhat guarded secondary to pain, [antalgic gait noted] Neurological: Speech clear, no gross sensory deficit Has patient had previous pain injection?: No Conservative treatment options previously tried: Home exercise plan Length of treatment: Longer than 12 weeks Meds Home Medications and Allergies Home Medications ?Medication ?Instructions ?Recorded ?Confirmed ?Type cholecalciferol (vitamin D3) 100 50,000 unit PO WEEKLY 08/07/23 04/25/24 History mcg (4,000 unit) capsule citalopram 20 mg tablet (Celexa) 20 mg PO DAILY 08/07/23 04/25/24 History cyclobenzaprine 10 mg tablet 10 mg PO TID PRN Pain 08/07/23 04/25/24 History loratadine 10 mg tablet (Claritin) 10 mg PO DAILY 08/07/23 04/25/24 History losartan 25 mg tablet 25 mg PO DAILY 08/07/23 04/25/24 History omeprazole 20 mg delayed 20 mg PO DAILY 08/07/23 04/25/24 History release,disintegrating tablet baclofen 10 mg tablet 10 mg PO TID #90 tabs 04/25/24 Rx meloxicam 15 mg tablet 15 mg PO DAILY #14 tabs 04/25/24 Rx New Prescriptions to Start Prescriptions: baclofen Jaiden,Jahaira A meloxicam Jahaira Hwang A Allergies Allergy/AdvReac Type Severity Reaction Status Date / Time No Known Allergies Allergy Verified 01/22/24 13:39 Assessment and Plan *Assessment and plan (1) Lumbar radiculopathy: Status: Acute Category: Medical Code(s): M54.16 - Radiculopathy, lumbar region (2) Lumbar spinal stenosis: Status: Acute Qualifiers: Neurogenic claudication status: with neurogenic claudication Qualified Code(s): M48.062 - Spinal stenosis, lumbar region with neurogenic claudication Category: Medical Code(s): M48.061 - Spinal stenosis, lumbar region without neurogenic claudication (3) Chronic low back pain: Status: Acute Qualifiers: Back pain laterality: bilateral Sciatica laterality: sciatica of right side Sciatica presence: with sciatica Qualified Code(s): M54.41 - Lumbago with sciatica, right side; G89.29 - Other chronic pain Category: Medical Code(s): M54.50 - Low back pain, unspecified; G89.29 - Other chronic pain (4) Lumbar spondylosis: Status: Acute Category: Medical Code(s): M47.816 - Spondylosis without myelopathy or radiculopathy, lumbar region (5) Lumbar facet arthropathy: Status: Acute Category: Medical Code(s): M47.816 - Spondylosis without myelopathy or radiculopathy, lumbar region Plan Patient is experiencing worsening pain in her lumbar spine with numbness and tingling into her bilateral lower extremities. Patient was counseled that I do believe she would benefit from a repeat lumbar epidural steroid injection. Risk and benefits were discussed with patient and she would like to proceed forward with this plan of care. Patient had her last epidural on 01/22/2024 that did provide 50% improvement lasting couple of months. Patient's epidural prior to that 1 was 75% relief lasting 3 months. Patient has continued conservative treatment including at home stretching exercise for longer than 12 weeks along with oral medications, heat and ice and topicals. Patient will be scheduled for an LESI L4-L5 under fluoroscopy. Patient does get significant improved function through these injections. I will also refill the patient's baclofen and provide a 3-month supply of this medication and also send in a 2-week dose of meloxicam 15 mg daily to see if this helps with her daily aches and pains. We will follow-up with this at future visits. Patient has been instructed to contact the clinic with any concerns before the next appointment. Dr. Marsh has reviewed this note and agrees with this plan of care. This note was dictated using voice recognition software and make contain errors or omissions. All injections are used with Lidocaine or Bupivacaine and Depo Medrol.
== END 2024-04-25 23:59 | disposition home or self-care (01) ==
PROVIDERS: PCP Physician Assistant; Visit Provider Nurse Practitioner Family
DX: M48.062 Spinal stenosis, lumbar region with neurogenic claudication (principal); M54.41 Lumbago with sciatica, right side; G89.29 Other chronic pain; M47.26 Other spondylosis with radiculopathy, lumbar region; F17.210 Nicotine dependence, cigarettes, uncomplicated; Z73.89 Other problems related to life management difficulty
CPT/HCPCS: 99212; G0463

== ENCOUNTER 2024-06-10 14:10 | Day surgery (SDC) | payer BC, SELFPAY ==
[2024-06-10 14:50] VITALS: BP 118/61; PULSE 71; RESP 18; O2SAT 96; BMI 37.8
[2024-06-10 15:07] VITALS: BP 128/58; PULSE 75; RESP 18; O2SAT 95
[2024-06-10 15:09] VITALS: BP 128/58; PULSE 75; RESP 18; O2SAT 96
--- NOTE | 2024-06-10 15:10 | EXP.PAIN.PRO ---
Procedure Date: 06/10/24 Time: 15:00 Anesthesiologist:: Rafat Caceres CRNA Complications:: None Pre-procedure Diagnosis:: Degenerative disc lumbar spine multilevels. Lumbar radiculopathy. Lumbar spondylosis. Multilevel lumbar facet arthropathy. Post-procedure Diagnosis:: Same. Indications for Procedure:: Patient is a pleasant 59-year-old female who comes our clinic today for repeat lumbar epidural steroid injection. Patient describes low lumbar back pain as constant, dull, aching. She also reports bilateral hip and leg radicular symptoms. She rates her pain 7/10. Procedure Details:: Procedure: Lumbar epidural steroid injection under fluoroscopy Informed consent was obtained and the risks and benefits of the procedure were explained to the patient. The patient was taken to the procedure room and noninvasive monitors placed, including noninvasive blood pressure cuff and pulse oximeter. The back was viewed using C-arm Fluoroscopy and prepped using Chloraprep as a cleansing solution and the L4-L5 interspace was palpated. Skin and subcutaneous tissues were anesthetized using lidocaine 1.5% and a 25-gauge needle. After this, an 18-gauge Touhy epidural needle was placed into the L4-L5 interspace and advanced using fluoroscopic guidance and loss of resistance to air until the epidural space was encountered. After confirmation of needle placement in the epidural space, with dye, a solution containing normal saline, 3 mL and Depo-Medrol 80 mg were incrementally injected into the lumbar epidural space. The patient tolerated the procedure well with no complications. The patient was observed in the Pain Clinic and then discharged home neurologically intact. Plan and Disposition:: Patient was discharged without incident.
[2024-06-10 15:32] LABS: POC Glucose,Bedside 102 (70-110)
== END 2024-06-10 15:14 | disposition home or self-care (01) ==
PROVIDERS: PCP Physician Assistant; Visit Provider Nurse Anesthetist, Certified Registered
DX: M51.16 Intervertebral disc disorders with radiculopathy, lumbar region (principal); M47.26 Other spondylosis with radiculopathy, lumbar region
CPT/HCPCS: 62323; 82962; J1010

== ENCOUNTER 2024-06-26 13:52 | Outpatient (POV) | payer BC, SELFPAY ==
--- NOTE | 2024-06-26 14:16 | A.OFFVIS_ITS ---
[facility] Disclaimer: The information contained in this section may have been updated after the patient was seen, as this information can be updated by other users. Medical History Vitamin D deficiency Back pain Depression Allergies GERD (gastroesophageal reflux disease) Hypertension Carpal tunnel syndrome on both sides Surgical History History of carpal tunnel release of both wrists Previous back surgery History of cholecystectomy History of appendectomy Social History Smoking Status: Current every day smoker alcohol intake: never current occupational status: other Travel in the last 8 weeks: None PM Subjective & Objective Subjective Subjective:: Patient is a pleasant 59-year-old female who presents today for follow-up of lumbar epidural steroid injection L4-L5 on 06/10/2024. Today she rates her pain a 8 out of 10. She denies any new trauma or injury. Patient does state that she had minimal relief following this injection. She states she is still having the low back and leg symptoms. Patient states that she has been seen by neurosurgery in the past and they did talk about doing surgical intervention however she really does not want to proceed forward with this option. Patient denies any heart or kidney issues. She states that she has been tried on meloxicam and Celebrex in the past with minimal relief. Patient states that sometimes this medication does cause stomach upset. Patient is currently managed with baclofen 10 mg 3 times a day. She denies any side effects. Her Handy has been reviewed and is appropriate. Review of Systems: General: No recent weight changes, no fever, no sleep disturbances Respiratory: No cough, no shortness of air, no recurring pulmonary infections Cardiovascular/peripheral vascular: No chest pain, no palpitations, no edema, no shortness of breath Gastrointestinal: No new onset incontinence, normal bowel movements reported Genitourinary: No new onset incontinence Musculoskeletal: Low back pain Psychiatric: [Normal mood/affect] Neurological: [Denies weakness in extremities], [denies balance issues] Pain at rest (0-10 scale): 8 Objective Objective:: Physical Exam: General: Alert and oriented x3, no acute distress, pleasant and cooperative Lungs: Respirations even and unlabored, symmetrical chest expansion Eyes: PERRL Musculoskeletal: Flexion and extension of lumbar [spine] somewhat guarded secondary to pain, [antalgic gait noted] Neurological: Speech clear, no gross sensory deficit Has patient had previous pain injection?: Yes Percent improvement in pain since last injection: Minimal Conservative treatment options previously tried: Home exercise plan Length of treatment: Longer than 12 weeks Meds Home Medications and Allergies Home Medications ?Medication ?Instructions ?Recorded ?Confirmed ?Type cholecalciferol (vitamin D3) 100 50,000 unit PO WEEKLY 08/07/23 04/25/24 History mcg (4,000 unit) capsule citalopram 20 mg tablet (Celexa) 20 mg PO DAILY 08/07/23 04/25/24 History cyclobenzaprine 10 mg tablet 10 mg PO TID PRN Pain 08/07/23 04/25/24 History loratadine 10 mg tablet (Claritin) 10 mg PO DAILY 08/07/23 04/25/24 History losartan 25 mg tablet 25 mg PO DAILY 08/07/23 04/25/24 History omeprazole 20 mg delayed 20 mg PO DAILY 08/07/23 04/25/24 History release,disintegrating tablet baclofen 10 mg tablet 10 mg PO TID #90 tabs 04/25/24 Rx meloxicam 15 mg tablet 15 mg PO DAILY #14 tabs 04/25/24 Rx New Prescriptions to Start Prescriptions: Allergies Allergy/AdvReac Type Severity Reaction Status Date / Time No Known Allergies Allergy Verified 01/22/24 13:39 Assessment and Plan *Assessment and plan (1) Lumbar radiculopathy: Status: Acute Category: Medical Code(s): M54.16 - Radiculopathy, lumbar region (2) Lumbar spondylosis: Status: Acute Category: Medical Code(s): M47.816 - Spondylosis without myelopathy or radiculopathy, lumbar region (3) Lumbar spinal stenosis: Status: Acute Qualifiers: Neurogenic claudication status: with neurogenic claudication Qualified Code(s): M48.062 - Spinal stenosis, lumbar region with neurogenic claudication Category: Medical Code(s): M48.061 - Spinal stenosis, lumbar region without neurogenic claudication (4) Lumbar facet arthropathy: Status: Acute Category: Medical Code(s): M47.816 - Spondylosis without myelopathy or radiculopathy, lumbar region (5) Chronic low back pain: Status: Acute Qualifiers: Back pain laterality: bilateral Sciatica laterality: sciatica of right side Sciatica presence: with sciatica Qualified Code(s): M54.41 - Lumbago with sciatica, right side; G89.29 - Other chronic pain Category: Medical Code(s): M54.50 - Low back pain, unspecified; G89.29 - Other chronic pain Plan I did discuss with the patient that in future she may benefit from a intrathecal pain pump trial and we will follow-up with this at future visits. I will make sure she has refills on her baclofen and I did discuss with her about trying a lower dose anti-inflammatory and to take it with food to minimize GI upset. I will send in a 2-week dose of diclofenac 50 mg daily. Patient will return to clinic in July for reevaluation of symptoms and plan of care. Patient has been instructed to contact the clinic with any concerns before the next appointment. Dr. Marsh has reviewed this note and agrees with this plan of care. This note was dictated using voice recognition software and make contain errors or omissions. All injections are used with Lidocaine, Bupivacaine and Depo Medrol. Occasionally urine drug screen is needed to verify patient's compliance with our office pain contract. This is ordered based off specific treatments related to chronic pain with the potential to abuse certain medications.
[2024-06-26 14:51] VITALS: BP 133/85; PULSE 69; RESP 14; O2SAT 96; BMI 36.8
== END 2024-06-26 23:59 | disposition home or self-care (01) ==
PROVIDERS: PCP Physician Assistant; Visit Provider Nurse Practitioner Family
DX: M47.26 Other spondylosis with radiculopathy, lumbar region (principal); M48.062 Spinal stenosis, lumbar region with neurogenic claudication; M54.41 Lumbago with sciatica, right side; G89.29 Other chronic pain; F17.200 Nicotine dependence, unspecified, uncomplicated
CPT/HCPCS: 99212; G0463

== ENCOUNTER 2024-08-01 11:26 | Outpatient (POV) | payer BC, SELFPAY ==
--- NOTE | 2024-08-01 11:33 | EXP.PAIN.PRO ---
Procedure Date: 08/01/24 Anesthesiologist:: Jahaira Hwang APRN Complications:: None Pre-procedure Diagnosis:: Degenerative disc disease of lumbar spine with lumbar radiculopathy symptoms, lumbar spinal stenosis, lumbar spondylosis, lumbar facet arthropathy Post-procedure Diagnosis:: Same
--- NOTE | 2024-08-01 11:35 | A.OFFVIS_ITS ---
[facility] Disclaimer: The information contained in this section may have been updated after the patient was seen, as this information can be updated by other users. Medical History (Updated 08/01/24 @ 12:29 by Jahaira Hwang APRN) Vitamin D deficiency Back pain Depression Allergies GERD (gastroesophageal reflux disease) Hypertension Carpal tunnel syndrome on both sides Surgical History History of carpal tunnel release of both wrists Previous back surgery History of cholecystectomy History of appendectomy Social History Smoking Status: Current every day smoker alcohol intake: never current occupational status: other Travel in the last 8 weeks: None PM Subjective & Objective Subjective Subjective:: Is prescribedPatient is a pleasant 59-year-old female who presents today for injection follow-up. Today she does rate her pain a 6 out of 10. She does state that she recently did have a fall related to the snow but denies any significant injuries. Patient is requesting if we can take over her gabapentin 300 mg 3 times daily that she gets from an outside provider. She states that it just makes it easier where she comes to see our office more frequently. Patient is also on baclofen 10 mg 3 times a day from our office and states this is helping significantly. Patient does write part of her pain today related to chronic shoulder pain. She describes it as an aching, throbbing sensation that is worse with increased activity and does interfere with her ability perform activities of daily living such as cooking and cleaning. Patient does also state that she knows that she has worsening symptoms in her neck send denies any recent imaging since her cervical surgery back in 2017. She feels like she has more numbness and tingling and increased headaches. Patient denies any prior surgery in her bilateral shoulders other than a rotator cuff repair on the right side. Patient has not had any injections into these joints.Patient is prescribed gabapentin from an outside provider. Her Handy has been reviewed and is appropriate. Review of Systems: General: No recent weight changes, no fever, no sleep disturbances Respiratory: No cough, no shortness of air, no recurring pulmonary infections Cardiovascular/peripheral vascular: No chest pain, no palpitations, no edema, no shortness of breath Gastrointestinal: No new onset incontinence, normal bowel movements reported Genitourinary: No new onset incontinence Musculoskeletal: Neck pain, bilateral shoulder pain Psychiatric: [Normal mood/affect] Neurological: [Denies weakness in extremities], [denies balance issues] Pain at rest (0-10 scale): 6 Objective Objective:: Physical Exam: General: Alert and oriented x3, no acute distress, pleasant and cooperative Lungs: Respirations even and unlabored, symmetrical chest expansion Eyes: PERRL Musculoskeletal: Flexion and extension of bilateral shoulders somewhat guarded secondary to pain, [antalgic gait noted] Neurological: Speech clear, no gross sensory deficit Has patient had previous pain injection?: No Conservative treatment options previously tried: Home exercise plan Length of treatment: Longer than 12 weeks Meds Home Medications and Allergies Home Medications ?Medication ?Instructions ?Recorded ?Confirmed ?Type cholecalciferol (vitamin D3) 100 50,000 unit PO WEEKLY 08/07/23 08/01/24 History mcg (4,000 unit) capsule citalopram 20 mg tablet (Celexa) 20 mg PO DAILY 08/07/23 08/01/24 History cyclobenzaprine 10 mg tablet 10 mg PO TID PRN Pain 08/07/23 08/01/24 History loratadine 10 mg tablet (Claritin) 10 mg PO DAILY 08/07/23 08/01/24 History losartan 25 mg tablet 25 mg PO DAILY 08/07/23 08/01/24 History omeprazole 20 mg delayed 20 mg PO DAILY 08/07/23 08/01/24 History release,disintegrating tablet meloxicam 15 mg tablet 15 mg PO DAILY #14 tabs 04/25/24 08/01/24 Rx baclofen 10 mg tablet 10 mg PO TID #90 tabs 06/26/24 08/01/24 Rx diclofenac sodium 50 mg 50 mg PO DAILY #14 tabs 06/26/24 08/01/24 Rx tablet,delayed release New Prescriptions to Start Prescriptions: Allergies Allergy/AdvReac Type Severity Reaction Status Date / Time No Known Allergies Allergy Verified 01/22/24 13:39 Assessment and Plan *Assessment and plan (1) Bilateral shoulder pain: Status: Acute Category: Medical Code(s): M25.511 - Pain in right shoulder; M25.512 - Pain in left shoulder (2) Degenerative disc disease, cervical: Status: Acute Category: Medical Code(s): M50.30 - Other cervical disc degeneration, unspecified cervical region Plan I did discuss with the patient due to her limited range of motion of her bilateral shoulders with increasing pain that she may be a beneficial candidate of intra-articular shoulder injections. Risk and benefits were discussed with patient and she would like to proceed forward with this plan of care. Patient has tried and failed conservative therapy including oral medication, heat and ice, topicals, at home stretching exercise for longer than 12 weeks. Patient has had chronic shoulder pain for years that is progressively worsened. I will also go ahead and start the process of ordering updated cervical imaging including x-ray with MRI to follow without contrast. Patient was counseled that we will take over her gabapentin and provide a 3-month supply of this medication along with her baclofen. Patient will be scheduled for bilateral shoulder injections. These will be done without fluoroscopic or ultrasound guidance. Patient has been instructed to contact the clinic with any concerns before the next appointment. Dr. Marsh has reviewed this note and agrees with this plan of care. This note was dictated using voice recognition software and make contain errors or omissions. All injections are used with Lidocaine, Bupivacaine and Depo Medrol. Occasionally urine drug screen is needed to verify patient's compliance with our office pain contract. This is ordered based off specific treatments related to chronic pain with the potential to abuse certain medications.
[2024-08-01 11:47] VITALS: BP 133/58; PULSE 69; RESP 16; TEMP 37; O2SAT 94; BMI 36.8
--- NOTE | 2024-08-01 13:04 | XR_ITS ---
FINAL REPORT CLINICAL HISTORY: Neck pain FINDINGS: CERVICAL SPINE 2 views were obtained. There is no acute fracture. There is anterior and interbody fusion at C5-6. There is moderate to space narrowing at C3-4. There is minimal spondylolisthesis of C4 on C5. IMPRESSION: Fusion at C5-6. Minimal spondylolisthesis at C4-5. Reviewed, Interpreted and Dictated by Juan Carlos Fontenot MD Transcribed by Cornelia Moss Authenticated and [facility]
== END 2024-08-01 23:59 | disposition home or self-care (01) ==
PROVIDERS: PCP Physician Assistant; Visit Provider Nurse Practitioner Family
DX: M25.511 Pain in right shoulder (principal); M25.512 Pain in left shoulder; M50.30 Other cervical disc degeneration, unspecified cervical region; F17.210 Nicotine dependence, cigarettes, uncomplicated; Z73.89 Other problems related to life management difficulty
CPT/HCPCS: 72040; 99212; G0463

== ENCOUNTER 2024-08-26 12:08 | Day surgery (SDC) | payer BC, SELFPAY ==
[2024-08-26 12:18] VITALS: BP 144/51; BP 149/60; PULSE 66; PULSE 73; RESP 17; RESP 18; TEMP 37.1; O2SAT 100; O2SAT 95; BMI 36.8
[2024-08-26] MEDS: methylPREDNISolone ACETATE 80MG/ML VIAL 80 MG (12:22)
[2024-08-26] MEDS: LIDOCAINE 1% 5ML PF VIAL 5 ML (12:22)
[2024-08-26] MEDS: BUPIVACAINE 0.25% 10ML INJ 25 MG IJ (12:22)
[2024-08-26 12:32] VITALS: BP 157/85; PULSE 65; RESP 17; O2SAT 96
--- NOTE | 2024-08-26 12:53 | EXP.PAIN.PRO ---
Procedure Date: 08/26/24 Time: 12:15 Anesthesiologist:: Rafat Caceres CRNA Complications:: None Pre-procedure Diagnosis:: DJD bilateral shoulder. Chronic bilateral shoulder pain. Post-procedure Diagnosis:: Same. Indications for Procedure:: Patient is a very pleasant 59-year-old female who comes our clinic today for bilateral intra-articular shoulder injections. Patient is status post rotator cuff repair in the right shoulder several years ago. She continued having pain at times in the right shoulder with abduction. Patient also reports left shoulder pain at times in regards to abduction. Patient has 5/5 strength in bilateral arms. However, limited range of motion secondary to pain in the bilateral shoulders. She rates her pain 7/10. Procedure Details:: Procedure Details: Left shoulder intra-articular injection Informed consent was obtained risk and benefits of the procedure were explained to the patient. Patient was taken to the procedure room. The Left shoulder was prepped using ChloraPrep. A 25-gauge needle was used posteriorly to inject 10 mL bupivacaine 0.25% and Depo-Medrol 40 mg. Patient tolerated procedure well with no complications. Procedure Details: Right shoulder intra-articular injection Informed consent was obtained risk and benefits of the procedure were explained to the patient. Patient was taken to the procedure room. The right shoulder was prepped using ChloraPrep. A 25-gauge needle was used posteriorly to inject 10 mL bupivacaine 0.25% and Depo-Medrol 40 mg. Patient tolerated procedure well with no complications. Plan and Disposition:: Patient was discharged without incident.
== END 2024-08-26 12:32 | disposition home or self-care (01) ==
PROVIDERS: PCP Physician Assistant; Visit Provider Nurse Anesthetist, Certified Registered
DX: M19.011 Primary osteoarthritis, right shoulder (principal); M19.012 Primary osteoarthritis, left shoulder; M25.512 Pain in left shoulder; M25.511 Pain in right shoulder; G89.29 Other chronic pain
CPT/HCPCS: 20610; J1010

== ENCOUNTER 2024-09-19 11:04 | Outpatient (POV) | payer BC, SELFPAY ==
--- NOTE | 2024-09-19 11:08 | P.HP_ITS ---
History of Present Illness *Admission Date: 09/19/24 *Reason for visit:: Intrathecal refill; DDD *History of present illness: Degenerative disc disease [facility] Disclaimer: The information contained in this section may have been updated after the patient was seen, as this information can be updated by other users. Medical History Vitamin D deficiency Back pain Depression Allergies GERD (gastroesophageal reflux disease) Hypertension Carpal tunnel syndrome on both sides Surgical History History of carpal tunnel release of both wrists Previous back surgery History of cholecystectomy History of appendectomy Social History Smoking Status: Current every day smoker alcohol intake: never current occupational status: other Travel in the last 8 weeks?: None Have you lived/traveled outside [place] in past 30 days?: No Contact w/someone who lives/traveled outside [place] past 30 days?: No Exposure to someone with infectious disease in past 14 days?: No Do you have a fever (greater than 100.4 F or 38 C)?: No Have you tested positive for COVID-19?: No Exposed to someone with COVID-19 in past 14 days?: No Do you have a sore throat?: No Do you have a cough?: No Do you have any weakness?: No Do you have any diarrhea?: No Are you experiencing any unusual bleeding?: No Do you have any muscle aches/pain?: No Do you have any abdominal pain?: No Are you experiencing loss of taste or smell?: No Other Medical History Have you received the Flu Vaccine for this season: No Have you received the Pneumonia Vaccine: No Review of Systems Review of Systems Review of systems:: pertinent systems reviewed and negative unless documented below Review of systems (narrative): Review of Systems: General: No recent weight changes, no fever, no sleep disturbances Respiratory: No cough, no shortness of air, no recurring pulmonary infections Cardiovascular/peripheral vascular: No chest pain, no palpitations, no edema, no shortness of breath Gastrointestinal: No new onset incontinence, normal bowel movements reported Genitourinary: No new onset incontinence Musculoskeletal: [] Psychiatric: [Normal mood/affect] Neurological: [Denies weakness in extremities], [denies balance issues] Meds Home Medications and Allergies Home Medications ?Medication ?Instructions ?Recorded ?Confirmed ?Type cholecalciferol (vitamin D3) 100 50,000 unit PO WEEKLY 08/07/23 08/26/24 History mcg (4,000 unit) capsule citalopram 20 mg tablet (Celexa) 20 mg PO DAILY 08/07/23 08/26/24 History cyclobenzaprine 10 mg tablet 10 mg PO TID PRN Pain 08/07/23 08/26/24 History loratadine 10 mg tablet (Claritin) 10 mg PO DAILY 08/07/23 08/26/24 History losartan 25 mg tablet 25 mg PO DAILY 08/07/23 08/26/24 History omeprazole 20 mg delayed 20 mg PO DAILY 08/07/23 08/26/24 History release,disintegrating tablet meloxicam 15 mg tablet 15 mg PO DAILY #14 tabs 04/25/24 08/26/24 Rx baclofen 10 mg tablet 10 mg PO TID #90 tabs 06/26/24 08/26/24 Rx diclofenac sodium 50 mg 50 mg PO DAILY #14 tabs 06/26/24 08/26/24 Rx tablet,delayed release gabapentin 300 mg capsule 300 mg PO TID #90 caps 08/01/24 08/26/24 Rx New Prescriptions to Start Prescriptions: Allergies Allergy/AdvReac Type Severity Reaction Status Date / Time No Known Allergies Allergy Verified 08/26/24 12:19
--- NOTE | 2024-09-19 11:09 | EXP.PAIN.SOA ---
[facility] Disclaimer: The information contained in this section may have been updated after the patient was seen, as this information can be updated by other users. Medical History Vitamin D deficiency Back pain Depression Allergies GERD (gastroesophageal reflux disease) Hypertension Carpal tunnel syndrome on both sides Surgical History History of carpal tunnel release of both wrists Previous back surgery History of cholecystectomy History of appendectomy Social History Smoking Status: Current every day smoker alcohol intake: never current occupational status: other Travel in the last 8 weeks?: None Have you lived/traveled outside US in past 30 days?: No Contact w/someone who lives/traveled outside US past 30 days?: No Exposure to someone with infectious disease in past 14 days?: No Do you have a fever (greater than 100.4 F or 38 C)?: No Have you tested positive for COVID-19?: No Exposed to someone with COVID-19 in past 14 days?: No Do you have a sore throat?: No Do you have a cough?: No Do you have any weakness?: No Do you have any diarrhea?: No Are you experiencing any unusual bleeding?: No Do you have any muscle aches/pain?: No Do you have any abdominal pain?: No Are you experiencing loss of taste or smell?: No PM Subjective & Objective Subjective Subjective:: Patient is a pleasant 59-year-old female who presents today for follow-up of intra-articular shoulder injections bilaterally on 08/26/2024. Today she rates that pain a 0 out of 10 and reports 100% relief. She does state that it took a few days to kick in but is doing much better. Patient does however state that her low back and legs is still a 7 out of 10. She denies any new falls or injuries. She does state that some days are worse than others. Patient does have a history of epidurals however these typically are very temporary. Patient is currently managed with gabapentin 300 mg 3 times a day from our office along with baclofen 10 mg 3 times a day. She denies any side effects. Patient is asking if we could do something for pain that she could take occasionally when it is more severe. Her Handy has been reviewed and is appropriate. Review of Systems: General: No recent weight changes, no fever, no sleep disturbances Respiratory: No cough, no shortness of air, no recurring pulmonary infections Cardiovascular/peripheral vascular: No chest pain, no palpitations, no edema, no shortness of breath Gastrointestinal: No new onset incontinence, normal bowel movements reported Genitourinary: No new onset incontinence Musculoskeletal: Back pain Psychiatric: [Normal mood/affect] Neurological: [Denies weakness in extremities], [denies balance issues] Pain at rest (0-10 scale): 7 Objective Objective:: Physical Exam: General: Alert and oriented x3, no acute distress, pleasant and cooperative Lungs: Respirations even and unlabored, symmetrical chest expansion Eyes: PERRL Musculoskeletal: Flexion and extension of lumbar [spine] somewhat guarded secondary to pain, [antalgic gait noted] Neurological: Speech clear, no gross sensory deficit Has patient had previous pain injection?: Yes Percent improvement in pain since last injection: 100% Conservative treatment options previously tried: Home exercise plan Length of treatment: Longer than 12 weeks Meds Home Medications and Allergies Home Medications ?Medication ?Instructions ?Recorded ?Confirmed ?Type cholecalciferol (vitamin D3) 100 50,000 unit PO WEEKLY 08/07/23 09/19/24 History mcg (4,000 unit) capsule citalopram 20 mg tablet (Celexa) 20 mg PO DAILY 08/07/23 09/19/24 History cyclobenzaprine 10 mg tablet 10 mg PO TID PRN Pain 08/07/23 09/19/24 History loratadine 10 mg tablet (Claritin) 10 mg PO DAILY 08/07/23 09/19/24 History losartan 25 mg tablet 25 mg PO DAILY 08/07/23 09/19/24 History omeprazole 20 mg delayed 20 mg PO DAILY 08/07/23 09/19/24 History release,disintegrating tablet meloxicam 15 mg tablet 15 mg PO DAILY #14 tabs 04/25/24 09/19/24 Rx baclofen 10 mg tablet 10 mg PO TID #90 tabs 06/26/24 09/19/24 Rx diclofenac sodium 50 mg 50 mg PO DAILY #14 tabs 06/26/24 09/19/24 Rx tablet,delayed release gabapentin 300 mg capsule 300 mg PO TID #90 caps 08/01/24 09/19/24 Rx New Prescriptions to Start Prescriptions: Allergies Allergy/AdvReac Type Severity Reaction Status Date / Time No Known Allergies Allergy Verified 08/26/24 12:19 Assessment and Plan *Assessment and plan (1) Lumbar radiculopathy: Status: Acute Category: Medical Code(s): M54.16 - Radiculopathy, lumbar region (2) Chronic low back pain: Status: Acute Qualifiers: Back pain laterality: bilateral Sciatica presence: with sciatica Sciatica laterality: sciatica of right side Qualified Code(s): M54.41 - Lumbago with sciatica, right side; G89.29 - Other chronic pain Category: Medical Code(s): M54.50 - Low back pain, unspecified; G89.29 - Other chronic pain Plan Will make sure she has refills on her gabapentin and baclofen and we will send in a 30-day supply of tramadol 50 mg daily. Patient has had this in the past with no side effects. Patient will return to clinic in 6 weeks for reevaluation of symptoms and plan of care. Risks and benefits of the medication have been explained in detail to the patient. The patient does understand the risk of dependence on the medication when given over a prolonged period. Patient has been advised of risks of oversedation with the prescribed medication. Narcan has been offered to the paitent in the event of oversedation. Patient has been advised that a family member should also be educated regarding administration of Narcan. The patient has been advised to consult with his/her primary care provider and pharmacist regarding drug-drug interaction of medications currently prescribed. Patient has been prescribed a controlled substance after being counseled on the medication, medication safety, and possible side effects. Opioid contract was reviewed and signed by the patient, and that they have agreed to all of the terms set forth by our compliance program. A UDS is needed to verify patient's compliance with our office pain contract. This is ordered based off specific treatments related to chronic pain with the potential to abuse certain medications. Patient has been instructed to contact the clinic with any concerns before the next appointment. Dr. Marsh has reviewed this note and agrees with this plan of care. This note was dictated using voice recognition software and make contain errors or omissions.
[2024-09-19 11:31] VITALS: BP 121/65; PULSE 67; RESP 16; O2SAT 98; BMI 37.0
== END 2024-09-19 23:59 | disposition home or self-care (01) ==
PROVIDERS: PCP Internal Medicine; Visit Provider Nurse Practitioner Family
DX: M54.16 Radiculopathy, lumbar region (principal); M54.41 Lumbago with sciatica, right side; G89.29 Other chronic pain; F17.200 Nicotine dependence, unspecified, uncomplicated
CPT/HCPCS: 99212; G0463

== ENCOUNTER 2024-11-28 10:40 | Outpatient (POV) | payer BC, SELFPAY ==
--- OUTSIDE RECORDS SUMMARY | 2024-11-28 10:46 | XMS_ITS | Data Portability ---
Author Organization [facility] Address [address] [facility] [address] [place] [address] Assessment Encounter Date Assessment Date Assessment LastModified by Organization Details LastModified Time 09/06/2023 09/06/2023 Assessment: Myron Morgan is a 58-year-old presenting to the clinic for low back and bilateral posterior lower extremity pain. Patient presents with MRI L-spine on a disc completed at [facility] on 06/04/2023. Patient reports the pain does not radiate past to her knees posteriorly. Patient has undergone conservative management with Aleve, Flexeril, gabapentin, and physical therapy. Based on patient's imaging and pain distribution, patient would be a candidate for a two-level lumbar fusion at L4-5 and L5-S1. Dr. Gibbs discussed the procedure in detail with the patient and explained her risk for adjacent level disease given the pathology at L3-4. At this time, patient would like to undergo injections, but will follow-up should her come pain continue. Imaging: I personally reviewed the imaging with Dr. Gibbs and discussed the below findings. Mild central canal stenosis noted at L3-L4 secondary to disc bulge. Spondylolisthesis noted at L4-L5. Disc herniation noted at L5-S1 with facet hypertrophy and cyst noted to the left facet. Plan: Refer to Dr. Marsh for lumbar injections Should the patient received minimal relief with injections, return to clinic with flexion/extension/l ateral/AP lumbar x-rays. Follow-up as needed [email or web address] Not available 09/06/2023 17:02:46 Plan of Treatment Reminders Order Date Submit Date Provider Last Modified By Organization Details Last Modified Time Details Appointments None record ed. Lab None record ed. Referral None record ed. Procedures None record ed. Surgeries None record ed. Imaging None record ed. Medication Orders None record ed. Patient TargetsNo targets recorded. Patient InstructionsNo instructions recorded. Reason for Referral None Reported. Procedures Surgical History Date Name Laterality Status Provider Name and Address Organization Details Recorded Time procedure on kidney completed [facility] 09/06/2023 14:50:33 Cholecystectomy completed [facility] 09/06/2023 14:50:39 Back Surgery completed [facility] 09/06/2023 14:50:52 Shoulder joint surgery completed [facility] 09/06/2023 14:51:14 Neck Surgery completed [facility] 09/06/2023 14:51:28 Imaging Results None recorded. Procedure Notes None recorded. Medical Equipment None Reported. Allergies No known drug allergies Medications Name Sig Start Date Stop Date Status Note LastModified by Organization Details LastModified Time Singulair 10 mg tablet active Medication Descriptio n: montelukas t; refills:0 Not Available Not Available Not Available losartan 50 mg tablet TAKE 1 TABLET BY MOUTH ONCE A DAY. active Not Available Not Available No t Available cyclobenza charly 10 mg tablet TAKE (1) TABLET BY MOUTH EVERY EIGHT HOURS. active Not Available Not Available No t Available metformin 500 mg tablet TAKE (1) TABLET BY MOUTH TWICE A DAY. active Not Available Not Available No t Available citalopram 40 mg tablet TAKE 1 TABLET BY MOUTH ONCE A DAY. active Not Available Not Available No t Available Lortab 7.5 mg-500 mg tablet active Medication Descriptio n: acetaminop hen-hydroc odone; Route:oral ; refills:0 Not Available Not Available Not Available prednisone 20 mg tablet TAKE 3 TABLETS DAILY FOR 2 DAYS, 2 TABLETS DAILY FOR 2 DAYS, 1 TABLET DAILY FOR 2 DAYS active Not Available Not Available No t Available simvastati n 40 mg tablet active Medication Descriptio n: simvastati n; refills:0 Not Available Not Available Not Available methocarba mol 750 mg tablet TAKE (1) TABLET BY MOUTH THREE TIMES DAILY. active Not Available Not Available No t Available benzonatat e 100 mg capsule TAKE 1 CAPSULE BY MOUTH EVERY 8 HOURS NEEDED active Not Available Not Available No t Available metformin 1,000 mg tablet TAKE (1) TABLET BY MOUTH TWICE A DAY. active Not Available Not Available No t Available omeprazole 20 mg capsule,de layed release TAKE (1) CAPSULE BY MOUTH ONCE A DAY. active Not Available Not Available No t Available diclofenac sodium 75 mg tablet,del ayed release TAKE (1) TABLET BY MOUTH TWICE A DAY. active Not Available Not Available No t Available gabapentin 100 mg capsule TAKE (1) CAPSULE BY MOUTH THREE TIMES DAILY. active Not Available Not Available No t Available ergocalcif kobe (vitamin D2) 1,250 mcg (50,000 unit) capsule TAKE 1 CAPSULE BY MOUTH ONCE A WEEK. active Not Available Not Available No t Available Zantac active Medication Descriptio n: ranitidine ; refills:0 Not Available Not Available Not Available Celexa active Medication Descriptio n: citalopram ; refills:0 Not Available Not Available Not Available Soma active Medication Descriptio n: carisoprod ol; Route:oral ; refills:0 Not Available Not Available Not Available Valturna active Medication Descriptio n: aliskiren- valsartan; refills:0 Not Available Not Available Not Available Vitals Date Recorded Body height Body mass index (BMI) Body weight Systolic And Diastolic Provider Name and Address Organization Details Last Updated DateTime 09/06/2023 154.94 cm 38 kg/m2 59715.07 g 132/82 mm[Hg] Nicol Nancy [facility] 09/06/2023 14:52:24 Social History None recorded. Functional Status None recorded. Mental Status None recorded. Family History Relationship Description Onset Age of this Age Resolved Age Notes LastModified by Organization Details LastModified Time Unspecified Relation Malignant neoplastic disease [email or web address] Not available 09/05 14:49:19 Unspecified Relation Hypertensive disorder [email or web address] Not available 09/05 14:50:08 Unspecified Relation Cerebrovascu lar accident [email or web address] Not available 14:50:15 Medical History Condition Response Diabetes Y Hypertension Y Gynecological HistoryNo gynecological history recorded. Obstetrics History GPAL:G 0 P 0 0 0 0 Past Encounters Encounter ID Performer Location Encounter Start Date Encounter Closed Date Diagnosis/Indication Diagnosis SNOMED-CT Code Diagnosis ICD10 Code Diagnosis Note [id number] PAOLA MAS PA-C [facility] [address] [place] [address] 09/06/2023 14:36:52 09/07/2023 04:07:38 Lumbar radiculopathy 486932508 M54.16 Low back pain 705404045 M54.50 Health Concerns Section Related Observation LastModified by Organization Detai ls LastModified Time None Recorded Concern Status LastModified by Organization Details LastModified Time None Recorded Advance Directives Directive None Recorded Payers Insurance Date Sequence Insurance Name Policy Number Policy Cabrera Covered Member ID Cabrera Member ID Guarantor Name 09/09/2023 1 [place] [id number] 1 Alejandra Morgan [id number] Alejandra Morgan Notes Date Note Type Note Provider Name and Address Organization Details Recorded Time 09/06/2023 text/html Alejandra Morgan i s a 58-year-old presenting to the clinic for low back and bilateral posterior lower extremity pain. Patient presents with MRI L-spine on a disc completed at [facility] on 06/04/2023. Patient reports her low back pain is to the waistline bilaterally and reports the pain does not extend past the knee. Patient denies numbness and tingling to bilateral lower extremities. Patient reports 6 months of pain. Patient was unable to complete more than 3 visits with physical therapy due to the pain. Patient takes Aleve, Flexeril and was previously prescribed gabapentin 100 mg 3 times daily for 1 month trial with pain relief. Patient previously underwent T5-6 discectomy and C5-6 anterior cervical discectomy and fusion with Dr. Vaca. Patient denies low back surgery or injections. Patient was seen by both Dr. Dr. Gibbs and Wendy in clinic today. PAOLA MAS PA-C [address] [place], [address], [facility] 09/06/2023 17:03:29 OBGyn Episode No OBEpisode recorded.
--- OUTSIDE RECORDS SUMMARY | 2024-11-28 10:46 | XMS_ITS | Clinical Summary ---
Author Organization Healthcare Address [address] [place] [address] Care Team Providers Care Crime Prevention Worker Name Role Phone Lian Benito APRN Primary Care Provider [phone] Allergies No known active allergies Medications No known medications Social History Tobacco Use Types Packs/Day Years Used Date Smoking Tobacco: Some Days Cigarettes Smokeless Tobacco: Never PHQ-2 Answer Date Recorded Patient Health Questionnaire-2 Score 2 10/10/2021 Comments Unknown Sex and Gender Information Value Date Recorded Sex Assigned at Not on file Legal Sex Female 2:52 PM EDT Gender Identity Not on file Sexual Orientation Not on file Last Filed Vital Signs Vital Sign Reading Time Taken Comments Blood Pressure 156/91 10/10/2021 11:18 AM EDT Pulse 71 10/10/2021 11:18 AM EDT Temperature 36.3 C (97.4 F) 10/10/2021 11:18 AM EDT Respiratory Rate - - Oxygen Saturation 97% 10/10/2021 11:18 AM EDT Inhaled Oxygen Concentration - - Weight 63.5 kg (140 lb) 10/10/2021 11:18 AM EDT Height 154.9 cm (5' 1 ) 10/10/2021 11:18 AM EDT Body Mass Index 26.45 10/10/2021 11:18 AM EDT Plan of Treatment Health Maintenance Due Date Last Done Comments [facility]-Depression Screening 1966 [facility]-Infant/Child/Adol SDOH Screenings 1966 [facility]- SDOH Screenings 1984 [facility]-Adult SDOH Screenings 1984 [facility]-DTaP,Tdap,and Td Vaccine s (1 - Tdap) 1985 [facility]-Hepatitis B Vaccines (1 of 3 - 19+ 3-dose series) 1985 [facility]-Pap Smear 1987 [facility]-Cervical Cancer Screening 1996 [facility]-HPV/Cotest 1996 CT Colonography 2011 Colonoscopy 2011 FIT-DNA 2011 FIT 2011 FOBT 2011 Sigmoidoscopy 2011 [facility]-Colorectal Cancer Screening 2011 [facility]-Pneumococcal Vaccine: 50 + Years (1 of 1 - PCV) 2016 [facility]-Zoster Vaccines (1 of 2) 2016 [id number] Vaccine ( - 24-25 season) 2024 [facility]-Influenza Vaccine (#1) 2025 HPV Vaccines Aged Out No longer eligi ble based on patient's age to complete this topic [facility]-HIB Vaccines Aged Out No longer e ligible based on patient's age to complete this topic [facility]-Hepatitis A Vaccines Aged Out No longer eligible based on patient's age to complete this topic [facility]-IPV Vaccines Aged Out No longer e ligible based on patient's age to complete this topic [facility]-Rotavirus Vaccines Aged Out No lo nger eligible based on patient's age to complete this topic Insurance Care Teams Crime Prevention Worker Relationship Specialty Start Date End Date Lian Benito APRN [address] [employer], [place] [id number] PCP - General 10/10/21
--- OUTSIDE RECORDS SUMMARY | 2024-11-28 10:47 | XMS_ITS | Data Portability ---
Author Organization [place] [facility] Address [address] [place] [address] Care Team Providers Care Bank Worker Name Role Phone EBENEZER HENSON Primary Care Provider Assessment No assessment recorded. Plan of Treatment Reminders Order Date Submit Date Provider Last Modified By Organization Details Last Modified Time Details Appointments None recorded. Lab lipid panel, serum [email or web address] [place], [address], 5 06:49:41 CMP, serum or plasma 2024 025 [facility])[address] [place], [address], 5 17:42:13 CBC w/ auto diff [address] [place], [address], 5 17:29:21 HbA1c (hemoglobin A1c), blood [address] [place], [address], 5 15:25:22 influenza virus A + B + SARS-CoV-2 (COVID19) Ag panel, rapid IA, upper respiratory specimen 2023 024 [email or web address] 40 [facility], [address] [place] [address], [place], [address], 4 18:38:34 drug screen, urine 2023 024 [email or web address] ([facility]), [address] [place] [address], [place], [address], 4 06:53:41 influenza virus A + B + SARS-CoV-2 (COVID19) Ag panel, rapid IA, upper respiratory specimen 2023 024 [email or web address] [facility], [address] [place] [address], [place], [address], 4 08:46:25 Referral nutritionis t/dietitian referral - [place] 2023 024 [place] [address] [facility] , [address] [place] [address], [address], 4 13:19:11 Procedures None recorded. Surgeries None recorded. Imaging None recorded. Medication Orders gabapentin 300 mg capsule 2024 025 [facility], [address] [place], [address], 5 15:25:07 ketorolac 60 mg/2 mL intramuscul ar solution 2024 025 [facility], [address] [place], [address], 5 15:17:03 ondansetron 8 mg disintegrat ing tablet 2024 025 [facility], [address] [place], [address], 5 15:24:53 Mounjaro 7.5 mg/0.5 mL subcutaneou s pen injector 2024 025 [facility], [address] [place], [address], 5 15:24:59 dexamethaso ne sodium phosphate 4 mg/mL injection solution 2023 024 [facility], [address] [place], [address], 5 14:08:28 ceftriaxone 1 gram solution for injection 2023 024 [facility], [address] [place], [address], 5 14:08:26 gabapentin 300 mg capsule 2023 024 [facility], [address] [place], [address], 4 12:27:09 ceftriaxone 1 gram solution for injection 2023 024 [facility], [address] [place], [address], 5 14:08:26 dexamethaso ne sodium phosphate 4 mg/mL injection solution 2023 024 [facility], [address] [place], [address], 5 14:08:28 doxycycline hyclate 100 mg capsule 2023 025 [facility], [address] [place], [address], 5 14:08:36 gabapentin 300 mg capsule 2023 024 [facility], [address] [place], [address], 4 15:11:31 ketorolac 60 mg/2 mL intramuscul ar solution 2023 024 [email or web address] [facility], [address] [place], [address], 4 10:43:49 gabapentin 100 mg capsule 2023 024 [facility], [address] [place], [address], 4 15:05:13 ketorolac 30 mg/mL (1 mL) injection solution 2023 024 [facility], [address] [place], [address], 4 14:27:17 cyclobenzap rine 10 mg tablet 2023 024 [facility], [address] [place], [address], 4 15:20:27 Mounjaro 7.5 mg/0.5 mL subcutaneou s pen injector 2023 024 [email or web address] [facility], [address] [place], [address], 4 13:13:33 cephalexin 500 mg capsule 2023 024 [email or web address] [facility], [address] [place], [address], 4 14:27:11 Patient TargetsNo targets recorded. Patient Instructions Encounter Date Encounter Id Patient Instructions Last Modified By Organization Details Last Modified Time 02/12/2024 [id number] Plan: 1. Refill sent to the pharmacy. 2. Reviewed Handy is appropriate for refill of gabapentin. Urine drug screen ordered today. 3. COVID and flu swab obtained today and negative. 4. Started patient on cephalexin for acute upper respiratory infection. 5. Based on her glucose level she is running 150 consistently I think we need to go ahead and increase her Mounjaro patient has been on her previous dose for the last 4 weeks. 6. Recommended follow-up in 4 weeks to recheck her glucose levels. Patient was advised to return to the clinic sooner if needed. Toradol injection administered today for her back. Patient's previous urine drug screen patient did not have prescription for gabapentin and that is why it is not detected on urine drug screen. Urine drug screen obtained today and patient has also been without medication therefore I would not expect to see it in the drug screen. [email or web address] Not available 02/13/2024 13:48:16 03/11/2024 [id number] continue followi ng with the pain Clinic for the injections. Increase gabapentin from 100 mg up to 300 mg 4 management of a combination of her osteoarthritis and her lumbar radiculopathy symptoms Not available 03/11/2024 15:05:00 Reason for Referral Long Filler [employer]/dietitian Refer ral for Type 2 diabetes mellitus [place] Referring Physician: Ebenezer Henson, Family Medicine, Encounter Date: 03/11/2024 Results Created Date Observation Date Name Description Value Unit Range Abnormal Flag Note LastModifiedBy Organization Detail LastModifiedTime 02/12/20 24 02/12/2024 influ chris virus A + B + SARS- CoV-2 (COVI D19) Ag panel , rapid IA, upper respi rator y speci men FLU A negati ve Not Available [address], [address], 02/12/2024 14:23:40 02/12/20 24 02/12/2024 influ chris virus A + B + SARS- CoV-2 (COVI D19) Ag panel , rapid IA, upper respi rator y speci men FLU B negati ve Not Available [address], [address], 02/12/2024 14:23:40 02/12/20 24 02/12/2024 influ chris virus A + B + SARS- CoV-2 (COVI D19) Ag panel , rapid IA, upper respi rator y speci men SARS COV + SARS OV 2 negati ve Not Available [address], [address], 02/12/2024 14:23:40 04/22/20 24 04/22/2024 influ chris virus A + B + SARS- CoV-2 (COVI D19) Ag panel , rapid IA, upper respi rator y speci men FLU A negati ve Not Available [address], [address], 04/22/2024 10:44:44 04/22/20 24 04/22/2024 influ chris virus A + B + SARS- CoV-2 (COVI D19) Ag panel , rapid IA, upper respi rator y speci men FLU B negati ve Not Available [address], [address], 04/22/2024 10:44:44 04/22/20 24 04/22/2024 influ chris virus A + B + SARS- CoV-2 (COVI D19) Ag panel , rapid IA, upper respi rator y speci men SARS COV + SARS OV 2 negati ve Not Available [address], [address], 04/22/2024 10:44:44 06/24/19 25 06/24/2024 CBC WITH AUTO DIFF WBC 12.4 10 4.5-11 .5 high Not Available [facility] (Lab) [address] [place], [address], 06/24/2024 17:29:21 06/24/19 25 06/24/2024 CBC WITH AUTO DIFF RBC 4.89 10 4.00-5 .40 Not Available [facility] (Lab) [address] [place], [address], 06/24/2024 17:29:21 06/24/19 25 06/24/2024 CBC WITH AUTO DIFF hemoglobin 14.7 g/dL 12.0-1 5.0 Not Available [facility] (Lab) [address] [place], [address], 06/24/2024 17:29:21 06/24/19 25 06/24/2024 CBC WITH AUTO DIFF hematocrit 44.4 % 35.0-4 9.0 Not Available [facility] (Lab) [address] [place], [address], 06/24/2024 17:29:21 06/24/19 25 06/24/2024 CBC WITH AUTO DIFF MCV 90.8 fL 80-100 Not Available [facility] (Lab) [address] [place], [address], 06/24/2024 17:29:21 06/24/19 25 06/24/2024 CBC WITH AUTO DIFF MCH 30.1 pg 26-32 Not Available [facility] (Lab) [address] [place], [address], 06/24/2024 17:29:21 06/24/19 25 06/24/2024 CBC WITH AUTO DIFF MCHC 33.1 g/dL 32-36 Not Available [facility] (Lab) [address] [place], [address], 06/24/2024 17:29:21 06/24/19 25 06/24/2024 CBC WITH AUTO DIFF RDW 12.9 % 11.5-1 4.5 Not Available [facility] (Lab) [address] [place], [address], 06/24/2024 17:29:21 06/24/19 25 06/24/2024 CBC WITH AUTO DIFF platelet count 393 10 150-45 0 Not Available [facility] (Lab) [address] [place], [address], 06/24/2024 17:29:21 06/24/19 25 06/24/2024 CBC WITH AUTO DIFF mean platelet volume 10.3 fL 6.8-10 .2 high Not Available [facility] (Lab) [address] [place], [address], 06/24/2024 17:29:21 06/24/19 25 06/24/2024 CBC WITH AUTO DIFF manual differential NOT INDICA CATARINO Not Available [facility] (Lab) [address] [place], [address], 06/24/2024 17:29:21 06/24/19 25 06/24/2024 CBC WITH AUTO DIFF ne% 65.5 % 50-70 Not Available [facility] (Lab) [address] [place], [address], 06/24/2024 17:29:21 06/24/19 25 06/24/2024 CBC WITH AUTO DIFF lymphs 24.9 % 18-42 Not Available [facility] (Lab) [address] [place], [address], 06/24/2024 17:29:21 06/24/19 25 06/24/2024 CBC WITH AUTO DIFF MO% 6.9 % 2-11 Not Available [facility] (Lab) [address] [place], [address], 06/24/2024 17:29:21 06/24/19 25 06/24/2024 CBC WITH AUTO DIFF eo% 1.6 % 1-3 Not Available [facility] (Lab) [address] [place], [address], 06/24/2024 17:29:21 06/24/19 25 06/24/2024 CBC WITH AUTO DIFF ba% 0.7 % 0.0-2. 0 Not Available [facility] (Lab) [address] [place], [address], 06/24/2024 17:29:21 06/24/19 25 06/24/2024 CBC WITH AUTO DIFF neutrophils (absolute) 8.1 K/uL 2.0-6. 9 high Not Available [facility] (Lab) [address] [place], [address], 06/24/2024 17:29:21 06/24/19 25 06/24/2024 CBC WITH AUTO DIFF lymphocytes (absolute) 3.1 K/uL 0.6-3. 4 Not Available [facility] (Lab) [address] [place] [address] [place], [address], 06/24/2024 17:29:21 06/24/19 25 06/24/2024 CBC WITH AUTO DIFF monocytes (absolute) 0.9 K/uL 0.0-0. 9 Not Available [facility] (Lab) [address] [place] [address] [place], [address], 06/24/2024 17:29:21 06/24/19 25 06/24/2024 CBC WITH AUTO DIFF eosinophils (absolute) 0.2 K/uL 0.0-0. 7 Not Available [facility] (Lab) [address] [place] [address] [place], [address], 06/24/2024 17:29:21 06/24/19 25 06/24/2024 CBC WITH AUTO DIFF basophils (absolute) 0.09 K/uL 0.0-0. 2 Not Available [facility] (Lab) [address] [place] [address] [place], [address], 06/24/2024 17:29:21 06/24/19 25 06/24/2024 COMPR EHENS FLETCHER METAB OLIC PANEL sodium 141 mmol/ L 136-14 5 Not Available [facility] (Lab) [address] [place] [address] [place], [address], 06/24/2024 17:42:13 06/24/19 25 06/24/2024 COMPR EHENS FLETCHER METAB OLIC PANEL potassium 4.4 mmol/ L 3.5-5. 1 Not Available [facility] (Lab) [address] [place], [address], 06/24/2024 17:42:13 06/24/19 25 06/24/2024 COMPR EHENS FLETCHER METAB OLIC PANEL chloride 103 mmol/ L 98.0-1 07.0 Not Available [facility] (Lab) [address] [place], [address], 06/24/2024 17:42:13 06/24/19 25 06/24/2024 COMPR EHENS FLETCHER METAB OLIC PANEL total CO2 32 mmol/ L 21-32 Not Available [facility] (Lab) [address] [place] [address] [place], [address], 06/24/2024 17:42:13 06/24/19 25 06/24/2024 COMPR EHENS FLETCHER METAB OLIC PANEL anion gap 10.4 mmol/ L 5.0-15 .0 Not Available [facility] (Lab) [address] [place], [address], 06/24/2024 17:42:13 06/24/19 25 06/24/2024 COMPR EHENS FLETCHER METAB OLIC PANEL glucose 85 mg/dL 70-120 Not Available [facility] (Lab) [address] [place], [address], 06/24/2024 17:42:13 06/24/19 25 06/24/2024 COMPR EHENS FLETCHER METAB OLIC PANEL BUN 13 mg/dL 7-18 Not Available [facility] (Lab) [address] [place], [address], 06/24/2024 17:42:13 06/24/19 25 06/24/2024 COMPR EHENS FLETCHER METAB OLIC PANEL creatinine 0.9 mg/dL 0.6-1. 0 Not Available [facility] (Lab) [address] [place], [address], 06/24/2024 17:42:13 06/24/19 25 06/24/2024 COMPR EHENS FLETCHER METAB OLIC PANEL BUN/creatini ne ratio 14.4 ratio 9-21 Not Available [facility] (Lab) [address] [place] [address] [place], [address], 06/24/2024 17:42:13 06/24/19 25 06/24/2024 COMPR EHENS FLETCHER METAB OLIC PANEL estimated glom filtration rate >60 mL/mi n 60.0- Not Available [facility] (Lab) [address] [place] [address] [place], [address], 06/24/2024 17:42:13 06/24/19 25 06/24/2024 COMPR EHENS FLETCHER METAB OLIC PANEL calcium 9.6 mg/dL 8.6-9. 8 Not Available [facility] (Lab) [address] [place] [address] [place], [address], 06/24/2024 17:42:13 06/24/19 25 06/24/2024 COMPR EHENS FLETCHER METAB OLIC PANEL bilirubin, total 0.4 mg/dL 0.2-1. 0 USE OF THIS ASSAY IS NOT RECOM ONELIA D FOR PATIE NTS UNDER GOING TREAT MENT WITH ELTRO MBOPA G DUE TO THE POTEN TIAL FOR FALSE LY ELEVA CATARINO RESUL TS. Not Available [facility] (Lab) [address] [place] [address] [place], [address], 06/24/2024 17:42:13 06/24/19 25 06/24/2024 COMPR EHENS FLETCHER METAB OLIC PANEL AST (SGOT) 19 IU/L 15-37 Not Available [facility] (Lab) [address] [place] [address] [place], [address], 06/24/2024 17:42:13 06/24/19 25 06/24/2024 COMPR EHENS FLETCHER METAB OLIC PANEL ALT (SGPT) 29 IU/L 12-78 Not Available [facility] (Lab) [address] [place] [address] [place], [address], 06/24/2024 17:42:13 06/24/19 25 06/24/2024 COMPR EHENS FLETCHER METAB OLIC PANEL alk phos 84 IU/L 54-369 Not Available [facility] (Lab) [address] [place] [address] [place], [address], 06/24/2024 17:42:13 06/24/19 25 06/24/2024 COMPR EHENS FLETCHER METAB OLIC PANEL total protein 7.8 g/dL 6.4-8. 2 Not Available [facility] (Lab) [address] [place] [address] [place], [address], 06/24/2024 17:42:13 06/24/19 25 06/24/2024 COMPR EHENS FLETCHER METAB OLIC PANEL albumin 4.3 g/dL 3.4-5. 0 Not Available [facility] (Lab) [address] [place] [address] [place], [address], 06/24/2024 17:42:13 06/24/19 25 06/24/2024 COMPR EHENS FLETCHER METAB OLIC PANEL globulin 3.5 g/dL 1.3-3. 5 Not Available [facility] (Lab) [address] [place] [address] [place], [address], 06/24/2024 17:42:13 06/24/19 25 06/24/2024 COMPR EHENS FLETCHER METAB OLIC PANEL alb/glob ratio 1.2 ratio 1.0-3. 9 Not Available [facility] (Lab) [address] [place] [address] [place], [address], 06/24/2024 17:42:13 06/24/19 25 06/24/2024 COMPR EHENS FLETCHER METAB OLIC PANEL osmolality, calculated 281 mOsm/ kg 272-29 5 Not Available [facility] (Lab) [address] [place] [address] [place], [address], 06/24/2024 17:42:13 06/24/19 25 06/24/2024 LIPID PANEL triglyceride s 119 mg/dL 1-150 Not Available [facility] (Lab) [address] [place], [address], 06/24/2024 17:42:15 06/24/19 25 06/24/2024 LIPID PANEL cholesterol 231 mg/dL 0-200 high Not Available [facility] (Lab) [address] [place], [address], 06/24/2024 17:42:15 06/24/19 25 06/24/2024 LIPID PANEL HDL chol 47 mg/dL 35-60 Not Available [facility] (Lab) [address] [place], [address], 06/24/2024 17:42:15 06/24/19 25 06/24/2024 LIPID PANEL chol/HDL ratio 5 -4.44 high Not Available [facility] (Lab) [address] [place], [address], 06/24/2024 17:42:15 06/24/19 25 06/24/2024 LIPID PANEL LDL (calculated) 160 mg/dL -130 high Not Available [facility] (Lab) [address] [place], [address], 06/24/2024 17:42:15 06/24/19 25 06/24/2024 HEMOG LOBIN A1C hemoglobin A1C 6.5 % 4.3-6. 4 high Not Available [facility] (Lab) [address] [place], [address], 06/24/2024 17:44:17 08/02/19 25 08/01/2024 XR, cervi mynor spine No observ ation record ed. [email or web address] Not Available 2024 14:35:14 08/06/19 25 08/01/2024 XR, cervi mynor spine No observ ation record ed. [email or web address] Not Available 2024 11:01:53 08/07/19 25 08/01/2024 XR, cervi mynor spine No observ ation record ed. [email or web address] Not Available 2024 10:04:38 Result Notes None recorded. Problems Name Problem SNOMED Code Status Onset Date Resolution Date Notes Provider Name and Address Organization Details Recorded Time Nausea 256652693 Active 2024 TIERA SINGLETON [facility] [employer] [facility],[address], [place], [address], [place] 5 14:56:32 Hypercholes terolemia 50028759 Active 2024 TIERA SINGLETON [facility] [employer] [facility],[address], [place], [address], [place] 5 07:30:48 Mixed anxiety and depressive disorder 244899410 Active 2021 Lian Benito NP [address] [place] [address],[address], [place], [address], [place] 2 10:49:07 Benign hypertensio n 79990784 Active 2021 Lian Benito NP [address] [place] [address],[address], [place], [address], [place] 2 10:51:17 Mixed hyperlipide jerry 633372556 Active 2021 Lian Benito NP [address] [place] [address],[address], [place], [address], [place] 2 10:51:24 Osteoarthri tis 601606578 Active 2021 Lian Benito NP [address] [place] [address],[address], [place], [address], [place] 2 10:51:30 Gastroesoph ageal reflux disease without esophagitis 393130906 Active 2021 Lian Benito NP [facility] [employer] [facility],[address], [place], [address], [place] 2 10:51:50 Fatigue 96102758 Active 2021 Lian Benito, AYAKA [facility] [employer] [facility],[address], [place], [address], [place] 2 10:52:02 Vitamin D deficiency 59007332 Active 2021 Lian Benito NP [facility] [employer] [facility],[address], [place], [address], [place] 2 10:53:38 Cough 79600564 Active 2022 Evelia garibay, [place] - [facility] & [place] 3 14:10:44 Acute upper respiratory infection 93707545 Active 2022 Lian Benito NP [facility] [employer] [facility],[address], [place], [address], [place] [facility] & [place] 3 14:28:33 Cat bite - wound 856726802 Active 2022 Lian Benito NP [facility] [employer] [facility],[address], [place], [address], [place] [facility] & [place] 3 14:23:59 Daytime hypersomnia 0033750623607 2 Active 2022 Lian Benito NP [facility] [employer] [facility],[address], [place], [address], [place] 3 14:25:08 Seasonal allergic rhinitis 247404955 Active 2022 TIERA SINGLETON [address] [facility],[address], [place], [address], [place] 3 14:21:09 Chronic low back pain 201200582 Active 2022 TIERA SINGLETON [address] [place] [address],[address], [address], [place] 3 14:04:54 Lumbar radiculopat hy 655594576 Active 2022 TIERA SINGLETON [address] [place] [address],[address], [address], [place] 3 15:16:28 Uncontrolle d type 2 diabetes mellitus 349030046 Active 2023 TIERA SINGLETON [address] [place] [address],[address], [address], [place] 4 13:27:35 Type 2 diabetes mellitus 95484737 Active 2023 Caren garibay, [place] 4 14:54:34 Acute urinary tract infection 119667602 Active 2023 Mary Lucas PA-C [address] [place] [address],[address], [address], [place] 4 15:16:11 Problem Notes None recorded. Procedures Surgical History Date Name Laterality Status Provider Name and Address Organization Details Recorded Time 022 procedure on fingernail completed Esme Hurley [place] 04/25/2022 10:17:06 017 Head or Neck Surgery completed Evelia BACA - [place] - [place] 06/12/2023 13:52:05 017 procedure on neck completed Esme BACA - [place] 04/25/2022 10:08:10 012 Other completed Evelia BACA - [place] 06/12/2023 13:52:04 009 Appendectomy completed Evelia Joy [place] - [place] 06/12/2023 13:52:05 008 Appendectomy completed Caren BACA - [place] - [place] 09/20/2023 14:50:48 008 Appendectomy completed Esme Hurley [place] - [place] 04/25/2022 10:05:06 004 Back Surgery completed Evelia Joy [place] 06/12/2023 13:52:05 004 Thoracic surgery ss completed Esme Hurley [place] - [place] 04/25/2022 10:05:48 002 Other completed Caren Soto B[place] - [facility] - [place] 09/20/2023 14:50:48 001 procedure on shoulder completed Esme Hurley [place] - [place] 04/25/2022 10:04:57 996 Other completed Caren Soto B[place] - [place] - [place] 09/20/2023 14:50:48 995 cholecystectomy completed Esme Hurley [place] - [place] 04/25/2022 10:04:36 995 operation on ureter completed Esme Hurley [place] 04/25/2022 10:10:16 994 Gastrointestinal Surgery completed Evelia BACA - [facility] - [place] 06/12/2023 13:52:05 Carpal tunnel surgery completed Esme Hurley [place] 04/25/2022 10:08:25 Imaging Results None recorded. Procedure Notes None recorded. Medical Equipment None Reported. Allergies No known drug allergies Medications Name Sig Start Date Stop Date Status Note LastModified by Organization Details LastModified Time losartan 50 mg tablet TAKE 1 TABLET BY MOUTH ONCE A DAY. 2024 active Not Available Not Available Not Avai lable cyclobenzap rine 10 mg tablet TAKE (1) TABLET EVERY EIGHT HOURS NEEDED FOR PAIN. active Not Available Not Available No t Available amoxicillin 500 mg capsule TAKE 1 CAPSULE BY MOUTH EVERY 12 HOURS 06/20 completed Not Available Not Available Not Available metformin 500 mg tablet TAKE (1) TABLET BY MOUTH TWICE A DAY. 09/18 completed Not Available Not Available Not Available doxycycline hyclate 100 mg capsule Take 1 capsule twice a day by oral route. 06/24 completed Not Available Not Available Not Available clindamycin HCl 300 mg capsule TAKE ONE CAPSULE EVERY 6 HOURS FOR 10 DAYS. 04/25 completed Not Available Not Available Not Available citalopram 40 mg tablet TAKE 1 TABLET BY MOUTH ONCE A DAY. 2024 active Not Available Not Available Not Avai lable cetirizine 10 mg tablet TAKE 1 TABLET BY MOUTH ONCE A DAY. active Not Available Not Available No t Available hydrocodone 5 mg-acetamin ophen 325 mg tablet TAKE ONE TABLET BY MOUTH EVERY 6 HOURS NEEDED FOR PAIN. 04/25 completed Not Available Not Available Not Available meloxicam 15 mg tablet active Not Available Not Available Not Available prednisone 20 mg tablet 3 tablets for 2 days then 2 tablets for 2 days then 1 tablet for 2 days 07/26 completed Not Available Not Available Not Available sulfamethox azole 800 mg-trimetho prim 160 mg tablet TAKE (1) TABLET BY MOUTH TWICE A DAY. 04/25 completed Not Available Not Available Not Available ketorolac 30 mg/mL (1 mL) injection solution Inject 1 mL every 6 hours by intramusc ular route. 03/11 completed Not Available Not Available Not Available ondansetron 8 mg disintegrat ing tablet Place 1 tablet twice a day by transling ual route as needed. 2024 active Not Available Not Available Not Avai lable ketorolac 10 mg tablet TAKE 1 TABLET BY MOUTH THREE TIMES DAILY. 11/19 completed Not Available Not Available Not Available ceftriaxone 1 gram solution for injection Take 1 g by injection route for 1 day. 06/24 completed Not Available Not Available Not Available citalopram 20 mg tablet TAKE 1 TABLET BY MOUTH ONCE A DAY. 05/09 completed Not Available Not Available Not Available methocarbam ol 750 mg tablet 06/12 completed Not Available Not Available Not Available OneTouch Ultra Test strips USE TO TEST THREE TIMES DAILY. active Not Available Not Available No t Available baclofen 10 mg tablet TAKE 1 TABLET BY MOUTH THREE TIMES DAILY. active Not Available Not Available No t Available benzonatate 100 mg capsule 06/12 completed Not Available Not Available Not Available cephalexin 500 mg capsule TAKE (1) CAPSULE BY MOUTH TWICE DAILY FOR 7 DAYS. FILL 02/14 completed Not Available Not Available Not Available metformin 1,000 mg tablet TAKE (1) TABLET BY MOUTH TWICE A DAY. 11/19 completed Not Available Not Available Not Available gabapentin 300 mg capsule TAKE (1) CAPSULE BY MOUTH THREE TIMES DAILY. active Not Available Not Available No t Available omeprazole 20 mg capsule,del ayed release TAKE (1) CAPSULE BY MOUTH ONCE A DAY. 2024 active Not Available Not Available Not Avai lable diclofenac sodium 75 mg tablet,alecia yed release TAKE (1) TABLET BY MOUTH TWICE A DAY. active Not Available Not Available No t Available diclofenac sodium 50 mg tablet,alecia yed release TAKE 1 TABLET BY MOUTH ONCE DAILY. active Not Available Not Available No t Available gabapentin 100 mg capsule TAKE (1) CAPSULE BY MOUTH THREE TIMES DAILY. 03/11 completed Not Available Not Available Not Available ergocalcife rol (vitamin D2) 1,250 mcg (50,000 unit) capsule TAKE 1 CAPSULE BY MOUTH ONCE A WEEK. active Not Available Not Available No t Available dexamethaso ne sodium phosphate 4 mg/mL injection solution Inject 2 mL by intramusc ular route for 1 day. 06/24 completed Not Available Not Available Not Available ketorolac 60 mg/2 mL intramuscul ar solution Inject 2 mL by intramusc ular route. 2024 active Not Available Not Available Not Avai lable glipizide 5 mg tablet TAKE 1 TABLET BY MOUTH TWICE DAILY. 2024 active Not Available Not Available Not Avai lable amoxicillin 875 mg-potassiu m clavulanate 125 mg tablet TAKE 1 TABLET BY MOUTH EVERY 12 HOURS 12/29 completed Not Available Not Available Not Available rosuvastati n 10 mg tablet TAKE 1 TABLET BY MOUTH ONCE A DAY. active Not Available Not Available No t Available OneTouch Ultra2 Meter USE TO TEST BLOOD SUGAR. active Not Available Not Available No t Available OneTouch Delica Plus Lancet 33 gauge USE TO TEST THREE TIMES DAILY active Not Available Not Available No t Available Mounjaro 7.5 mg/0.5 mL subcutaneou s pen injector INJECT 7.5MG SUB-Q ONCE WEEKLY 2024 active Not Available Not Available Not Avai lable Mounjaro 5 mg/0.5 mL subcutaneou s pen injector INJECT 5 MG UNDER THE SKIN ONCE WEEKLY. 03/11 completed Not Available Not Available Not Available Mounjaro 2.5 mg/0.5 mL subcutaneou s pen injector 06/24 completed Not Available Not Available Not Available Ozempic 0.25 mg or 0.5 mg (2 mg/3 mL) subcutaneou s pen injector Inject 0.25 mg every week by subcutane ous route for 30 days. 10/23 completed Not Available Not Available Not Available Vitals Date Recorded Body height Body weight Body temperature Oxygen saturation Oxygen saturation in Arterial blood by Pulse oximetry Heart rate Systolic And Diastolic Provider Name and Address Organization Details Last Updated DateTime 5 154.94 cm 17367.9 1 g 97.5 [degF] 96 % 96 % 82 /min 132/84 mm[Hg] [facility] [place] 5 14:07:59 Date Recorded Body height Body temperature Oxygen saturation Oxygen saturation in Arterial blood by Pulse oximetry Heart rate Systolic And Diastolic Provider Name and Address Organization Details Last Updated DateTime 4 154.94 cm 98.7 [degF] 97 % 97 % 80 /min 130/76 mm[Hg] Lianecyn BACA [facility] & [place] 4 14:18:37 Date Recorded Body height Body mass index (BMI) Body weight Body temperature Oxygen saturation Oxygen saturation in Arterial blood by Pulse oximetry Heart rate Respiratory rate Systolic And Diastolic Provider Name and Address Organization Details Last Updated DateTime 4 154.94 cm 39.7 kg/m2 61761.4 g 96.5 [degF] 96 % 96 % 75 /min 16 /min 124/74 mm[Hg] Caren Singletary [facility] & [place] 4 14:26:50 Date Recorded Body height Body mass index (BMI) Body weight Body temperature Oxygen saturation Oxygen saturation in Arterial blood by Pulse oximetry Heart rate Systolic And Diastolic Provider Name and Address Organization Details Last Updated DateTime 4 154.94 cm 39.7 kg/m2 11049.4 g 96.8 [degF] 97 % 97 % 90 /min 126/74 mm[Hg] Evelia BACA [facility] [place] 4 10:43:29 Date Recorded Body height Body mass index (BMI) Body weight Body temperature Oxygen saturation Oxygen saturation in Arterial blood by Pulse oximetry Heart rate Systolic And Diastolic Provider Name and Address Organization Details Last Updated DateTime 4 154.94 cm 39.7 kg/m2 92492.4 g 98 [degF] 99 % 99 % 84 /min 128/76 mm[Hg] Evelia Singletary [facility] [place] 4 16:26:15 Social History Question Answer Notes LastModified by [employer] Details LastModified Time Tobacco Smoking Status Current Every Day Smoker Esme Hurley [facility] & [place] 04/25/2022 10:04:20 What Is Your Level Of Caffeine Consumption? Occasional [email or web address] Information not available 06/12/2023 Sex: Female Functional Status Question Answer Note LastModified by [employer] Details LastModified Time Do you use any illicit or recreational drugs? No [email or web address] Information not available 04/25/2022 What is your level of alcohol consumption? None [email or web address] Information not available 04/25/2022 Mental Status None recorded. Family History Relationship Description Onset Age of this Age Resolved Age Notes LastModified by Organization Details LastModified Time Mother Coronary arterioscler osis [email or web address] Not available 2024 13:57:10 Mother Acute stroke [email or web address] Not avai lable 06/24/2024 13:57:10 Mother Hypertensive disorder [email or web address] Not available 2021 10:03:56 Mother Cerebrovascu lar accident pt. added direct ly (05/07) [email or web address] Not available 05/07/2023 11:13:33 Mother Cerebrovascu lar accident pt. added direct ly (05/07) [email or web address] Not available 05/07/2023 11:16:15 Sister Sleep disorder pt. added direct ly (05/07) [email or web address] Not available 05/07/2023 11:14:32 Sister Disorder of endocrine system pt. added direct ly (05/07) [email or web address] Not available 05/07/2023 11:14:52 Sister Disorder of endocrine system pt. added direct ly (05/07) [email or web address] Not available 05/07/2023 11:16:36 Brother Blood coagulation disorder pt. added direct ly (05/07) [email or web address] Not available 05/07/2023 11:15:13 Medical History Condition Response Other Y Arthritis Y Liver Disease Y Spine Problems Y Psychiatric/Mental Health Condition Y Headaches Y Back Problems Y Hypertension Y Kidney or Bladder Problems Y GI Problems Y Kidney Disease Y Gynecological HistoryNo gynecological history recorded. Obstetrics History GPAL:G 0 P 0 0 0 0 Past Encounters Encounter ID Performer Location Encounter Start Date Encounter Closed Date Diagnosis/Indication Diagnosis SNOMED-CT Code Diagnosis ICD10 Code Diagnosis Note [id number] Lian Benito NP [address] [address] 04/25/2022 09:23:43 04/25/2022 11:11:11 Benign hypertension 01252597 I10 Mixed hyperlipidemia 267 927164 E78.2 Mixed anxi ety and depressive disorder 957506960 F41.8 Osteoarthritis 252668779 M19.90 Gastroesop hageal reflux disease without esophagitis 811570856 K21.9 Fatigue 49058240 R53.83 Vitamin D deficiency 347 48218 E55.9 [id number] Lian Benito NP [address] [address] 2022 10:39:36 2022 11:24:06 Benign hypertension 76923074 I10 Mixed anxi ety and depressive disorder 462619180 F41.8 Vitamin D deficiency 347 61342 E55.9 Osteoarthritis 997232397 M19.90 [id number] Lian Benito NP [address] [address] [place] [address] 05/23/2022 13:42:40 05/23/2022 15:04:46 Cough 55954471 R05.9 Benign hypertension 1072 5009 I10 Mixed anxi ety and depressive disorder 105550839 F41.8 Acute uppe r respiratory infection 29389222 J06.9 [id number] Ashleigh Barnes [address] [address] [place] [address] 06/20/2022 13:55:51 06/20/2022 14:28:41 Cat bite - wound 098438000 T14.8XXA Mixed anxi ety and depressive disorder 217228648 F41.8 Daytime hypersomnia 3177 268713 6965 G47.19 [id number] Ashleigh Barnes [address] [address] 12/29/2022 13:51:18 12/29/2022 14:46:22 Mixed anxiety and depressive disorder 818815942 F41.8 Osteoarthritis 573618349 M19.90 Benign hypertension 1072 5009 I10 Gastroesop hageal reflux disease without esophagitis 370103569 K21.9 Seasonal a llergic rhinitis 839965494 J30.2 Vitamin D deficiency 347 89661 E55.9 [id number] Amadeo Doran MD [address] [address] 03/21/2023 13:32:34 03/21/2023 14:55:20 Mixed anxiety and depressive disorder 069372535 F41.8 Osteoarthritis 856080307 M19.90 Vitamin D deficiency 347 14553 E55.9 Benign hypertension 1072 5009 I10 Gastroesop hageal reflux disease without esophagitis 358689088 K21.9 Seasonal a llergic rhinitis 869271375 J30.2 Chronic low back pain 27 6424676 M54.50 [id number] Amadeo Doran MD [address] [place] [address] 2023 14:17:43 2023 15:16:26 Osteoarthritis 486587075 M19.90 Mixed anxi ety and depressive disorder 889060637 F41.8 Benign hypertension 1072 5009 I10 Gastroesop hageal reflux disease without esophagitis 031775550 K21.9 Seasonal a llergic rhinitis 745280263 J30.2 Lumbar radiculopathy 128 063338 M54.16 [id number] Amadeo Doran MD [address] [address] 06/12/2023 13:44:46 06/12/2023 15:14:26 Lumbar radiculopathy 197113882 M54.16 [id number] Amadeo Doran MD [address] [address] 07/27/2023 13:01:29 07/27/2023 13:34:11 Diet education 55463342 Z71.3 Uncontroll ed type 2 diabetes mellitus 061694550 E11.65 Mixed anxi ety and depressive disorder 307663009 F41.8 Mixed hyperlipidemia 267 653327 E78.2 Vitamin D deficiency 347 49187 E55.9 Gastroesop hageal reflux disease without esophagitis 391948042 K21.9 Benign hypertension 1072 5009 I10 Lumbar radiculopathy 128 418936 M54.16 [id number] Amadeo Doran MD [address] [address] 09/20/2023 14:30:37 09/20/2023 15:39:56 Type 2 diabetes mellitus 98490729 E11.9 Benign hypertension 1072 5009 I10 Gastroesop hageal reflux disease without esophagitis 266879550 K21.9 Mixed hyperlipidemia 267 601563 E78.2 Osteoarthritis 851410702 M19.90 Vitamin D deficiency 347 87456 E55.9 Lumbar radiculopathy 128 126055 M54.16 Uncontroll ed type 2 diabetes mellitus 876791545 E11.65 [id number] Amadeo Doran MD [address] [address] [address] [facility] [place] [address] 10/25/2023 13:00:18 10/25/2023 14:09:12 Mixed anxiety and depressive disorder 089502263 F41.8 Uncontroll ed type 2 diabetes mellitus 225941907 E11.65 Lumbar radiculopathy 128 344841 M54.16 [id number] Amadeo Doran MD [address] [address] [place] [address] 11/20/2023 10:29:09 11/20/2023 11:14:39 Uncontrolled type 2 diabetes mellitus 165969569 E11.65 Benign hypertension 1072 5009 I10 Osteoarthritis 593726447 M19.90 Chronic low back pain 27 2485040 M54.50 Lumbar radiculopathy 128 125749 M54.16 [id number] Amadeo Doran MD [address] [address] [facility] [place] [address] 01/10/2024 13:19:14 01/10/2024 14:24:47 Uncontrolled type 2 diabetes mellitus 425515102 E11.65 Lumbar radiculopathy 128 666316 M54.16 Chronic low back pain 27 9541383 M54.50 [id number] Amadeo Doran MD [address] [address] [address] [facility] [place] [address] 02/12/2024 14:06:15 02/12/2024 15:24:56 Osteoarthritis 224772053 M19.90 Lumbar radiculopathy 128 645666 M54.16 Cough 76604693 R05.9 Uncontroll ed type 2 diabetes mellitus 490649236 E11.65 Acute uppe r respiratory infection 01770177 J06.9 [id number] Amadeo Doran MD [address] [address] [address] [facility] [place] [address] 03/11/2024 14:15:02 03/11/2024 15:14:57 Type 2 diabetes mellitus 79447226 E11.9 Osteoarthritis 332929406 M19.90 Benign hypertension 1072 5009 I10 Mixed anxi ety and depressive disorder 465158767 F41.8 Mixed hyperlipidemia 267 921777 E78.2 Chronic low back pain 27 3680484 M54.50 Fatigue 80446093 R53.83 [id number] Amadeo Doran MD [address] [address] 04/22/2024 10:35:34 04/22/2024 12:04:30 Osteoarthritis 466942046 M19.90 Cough 06688596 R05.9 Acute uppe r respiratory infection 97972398 J06.9 [id number] Amadeo Doran MD [address] [address] 04/24/2024 16:20:03 04/24/2024 16:52:04 Acute upper respiratory infection 74294172 J06.9 [id number] Amadeo Doran MD [address] [address] 06/24/2024 13:56:46 06/24/2024 15:30:39 Mixed hyperlipidemia 688893830 E78.2 Vitamin D deficiency 347 45802 E55.9 Benign hypertension 1072 5009 I10 Nausea 635308863 R11.0 Lumbar radiculopathy 128 746665 M54.16 Osteoarthritis 523429406 M19.90 Uncontroll ed type 2 diabetes mellitus 714230711 E11.65 Health Concerns Section Related Observation LastModified by Organization Detai ls LastModified Time None Recorded Concern Status LastModified by Organization Details LastModified Time None Recorded Advance Directives Directive None Recorded Payers Insurance Date Sequence Insurance Name Policy Number Policy Cabrera Covered Member ID Cabrera Member ID Guarantor Name 06/23/2024 1 [place] [id number] 1 Alejandra Eddie [id number] Alejandra Eddie Notes Date Note Type Note Provider Name and Address Organization Details Recorded Time 02/12/2024 text/html Alejandra is a 58 y o female who presents to the clinic today for evaluation. Patient is needing refills of medications. Patient has a history of lumbar radiculopathy she is went to see a surgeon and they did not recommend surgery at this time she is following with pain management and they are trying treatment options with her. Patient would like a refill of her gabapentin she has not had it for a few months would like to have a refill of that today she does feel like it really helps with her symptoms. Patient has been having a flare-up of her back pain. Patient also has a history of cough congestion drainage which started in the last week. Patient states that nothing has seemed to make that any better or worse. Patient denies any fevers chills body aches. Patient denies any ear pain sore throat or chest congestion. Mary Lucas PA-C [address], [place], [address], [facility] & [place] 02/13/2024 13:48:22 03/11/2024 text/html patient presents today for evaluation. She has a history of lumbar radiculopathy. She is following with pain management. She has had 2 of 3 epidural injections. She has had minimal improvement with these 2. She is concerned about having the 3rd 1 and the possibility of not having any improvement. Currently she is also taking gabapentin 100 mg but it is not controlling her pain. She is requesting to go back on the 300 mg. currently she is rating her back pain a 6 on a 1-10 scale. It has an achy sharp sensation and she also experiences some mild numbness extending down her legs. Has a history of diabetes. She is taking Mounjaro 7.5 mg And glipizide 5 mg twice a day. She is still having elevated glucose levels. She states she is hungry all the time and she feels she is eating the wrong type of foods. She does have history of depression. She takes citalopram 40 mg a day. she does feel that it does help her condition. No side effects to the medicines. She does not need a refill today. In addition to this she has a history of hypertension, vitamin-D deficiency, gastroesophageal reflux disease and environmental allergies. These are all being treated TIERA SINGLETON [address], [place], [address], [facility] & [place] 03/13/2024 07:39:12 04/22/2024 text/html patient presents today for evaluation. is experiencing upper respiratory congestion. Postnasal drainage. Ear pressure and fullness. Runny nose. Postnasal drainage creating a cough. This is been going on for the last 4 or 5 days. she has been experiencing face pain and pressure. She has a headache. She has bilateral ear discomfort in addition to the pressure and fullness. Has a history of chronic pain. She has lumbar radiculopathy with pain extending down the legs. She has been seen by Neurosurgery. They have recommended surgery but she is not ready to proceed with this at this time. She is taking gabapentin and it is helping control her symptoms. Has history of diabetes. She does have an elevated A1c greater than 9. Two months ago increased her Mounjaro up to 7.5 mg weekly in addition to this she is also taking glipizide 5 mg twice a day. No reported low levels. No side effects to her medications. TIERA SINGLETON [address] [place] [address],[address], [place], [address], [facility] 04/23/2024 07:48:53 04/24/2024 text/html patient presents today for evaluation. is experiencing upper respiratory congestion. Postnasal drainage. Ear pressure and fullness. Runny nose. Postnasal drainage creating a cough. patient was seen in the office a few days ago. Received injections at that time as well as oral medications. She has doing a lot better but still has some residual issues. She has other medical conditions including hypertension, gastroesophageal reflux disease, hyperlipidemia, vitamin-D deficiency and anxiety with depression. These are all being treated with medications without any side effects TIERA SINGLETON [address], [place], [address], [place] [facility] 04/26/2024 07:32:47 06/24/2024 text/html Patient presents for evaluation today. She has lost 15 pounds since her last visit on Mounjaro. She is interested in increasing her dose, but asked if she needed blood work prior to dose change. She reports making lifestyle changes in addition to the Mounjaro. She reports nausea after taking her Mounjaro and was wondering if she could get Zofran. She also has hypertension, hyperlipidemia, GERD, osteoarthritis, and mixed anxiety/depressive disorder. These are all controlled with medications. She is not experiencing side effects from medications. Patient does need a refill of Gabapentin. Patient's most recent lab work was 11/20/23. TIERA SINGLETON [address] [place] [address],[address], [place], [address], [place] [facility] [place] [facility] [place] 06/25/2024 08:00:48 OBGyn Episode No OBEpisode recorded.
[2024-11-28 11:01] VITALS: BP 110/49; PULSE 67; RESP 18; O2SAT 96; BMI 35.9
--- NOTE | 2024-11-28 11:36 | EXP.PAIN.SOA ---
[facility] Disclaimer: The information contained in this section may have been updated after the patient was seen, as this information can be updated by other users. Medical History Vitamin D deficiency Back pain Depression Allergies GERD (gastroesophageal reflux disease) Hypertension Carpal tunnel syndrome on both sides Surgical History History of carpal tunnel release of both wrists Previous back surgery History of cholecystectomy History of appendectomy Social History Smoking Status: Current every day smoker alcohol intake: never current occupational status: other Travel in the last 8 weeks?: None PM Subjective & Objective Subjective Subjective:: Patient is a pleasant 59-year-old female who presents today for follow-up. Today she rates her pain a 6 out of 10. She denies any new trauma or injury. She does still have chronic low back pain that does radiate into her legs. Patient does state that her shoulders have still continued to do wonderful following her intra-articular injections in August. Patient is currently managed with gabapentin 300 mg 3 times a day, baclofen 10 mg 3 times a day and tramadol 50 mg daily from our office. She denies any side effects. Patient does state that her only complaint is that the tramadol does not seem to make it all the way throughout the day and by the evening she is hurting more. Patient is asking if we can make any additional adjustments. Her Handy has been reviewed and is appropriate. Review of Systems: General: No recent weight changes, no fever, no sleep disturbances Respiratory: No cough, no shortness of air, no recurring pulmonary infections Cardiovascular/peripheral vascular: No chest pain, no palpitations, no edema, no shortness of breath Gastrointestinal: No new onset incontinence, normal bowel movements reported Genitourinary: No new onset incontinence Musculoskeletal: Low back pain Psychiatric: [Normal mood/affect] Neurological: [Denies weakness in extremities], [denies balance issues] Pain at rest (0-10 scale): 6 Objective Objective:: Physical Exam: General: Alert and oriented x3, no acute distress, pleasant and cooperative Lungs: Respirations even and unlabored, symmetrical chest expansion Eyes: PERRL Musculoskeletal: Flexion and extension of lumbar [spine] somewhat guarded secondary to pain, [antalgic gait noted] Neurological: Speech clear, no gross sensory deficit Has patient had previous pain injection?: No Conservative treatment options previously tried: Home exercise plan Length of treatment: Longer than 12 weeks Meds Home Medications and Allergies Home Medications ?Medication ?Instructions ?Recorded ?Confirmed ?Type cholecalciferol (vitamin D3) 100 50,000 unit PO WEEKLY 08/07/23 11/28/24 History mcg (4,000 unit) capsule citalopram 20 mg tablet (Celexa) 20 mg PO DAILY 08/07/23 11/28/24 History cyclobenzaprine 10 mg tablet 10 mg PO TID PRN Pain 08/07/23 11/28/24 History loratadine 10 mg tablet (Claritin) 10 mg PO DAILY 08/07/23 11/28/24 History losartan 25 mg tablet 25 mg PO DAILY 08/07/23 11/28/24 History omeprazole 20 mg delayed 20 mg PO DAILY 08/07/23 11/28/24 History release,disintegrating tablet meloxicam 15 mg tablet 15 mg PO DAILY #14 tabs 04/25/24 11/28/24 Rx diclofenac sodium 50 mg 50 mg PO DAILY #14 tabs 06/26/24 11/28/24 Rx tablet,delayed release baclofen 10 mg tablet 10 mg PO TID #90 tabs 09/19/24 11/28/24 Rx gabapentin 300 mg capsule 300 mg PO TID #90 caps 09/19/24 11/28/24 Rx tramadol 50 mg tablet 50 mg PO DAILY #30 tabs 09/19/24 11/28/24 Rx New Prescriptions to Start Prescriptions: Allergies Allergy/AdvReac Type Severity Reaction Status Date / Time No Known Allergies Allergy Verified 08/26/24 12:19 Assessment and Plan *Assessment and plan (1) Lumbar radiculopathy: Status: Acute Category: Medical Code(s): M54.16 - Radiculopathy, lumbar region (2) Chronic low back pain: Status: Acute Qualifiers: Back pain laterality: bilateral Sciatica presence: with sciatica Sciatica laterality: sciatica of right side Qualified Code(s): M54.41 - Lumbago with sciatica, right side; G89.29 - Other chronic pain Category: Medical Code(s): M54.50 - Low back pain, unspecified; G89.29 - Other chronic pain (3) Degenerative disc disease, lumbar: Status: Acute Category: Medical Code(s): M51.369 - Other intervertebral disc degeneration, lumbar region without mention of lumbar back pain or lower extremity pain Plan I will refill the patient's gabapentin, baclofen and tramadol and change the tramadol to twice a day. Patient will return to clinic in approximately 2 months for reevaluation of symptoms and plan of care. Risks and benefits of the medication have been explained in detail to the patient. The patient does understand the risk of dependence on the medication when given over a prolonged period. Patient has been advised of risks of oversedation with the prescribed medication. Narcan has been offered to the paitent in the event of oversedation. Patient has been advised that a family member should also be educated regarding administration of Narcan. The patient has been advised to consult with his/her primary care provider and pharmacist regarding drug-drug interaction of medications currently prescribed. Patient has been prescribed a controlled substance after being counseled on the medication, medication safety, and possible side effects. Opioid contract was reviewed and signed by the patient, and that they have agreed to all of the terms set forth by our compliance program. A UDS is needed to verify patient's compliance with our office pain contract. This is ordered based off specific treatments related to chronic pain with the potential to abuse certain medications. Patient has been instructed to contact the clinic with any concerns before the next appointment. Dr. Marsh has reviewed this note and agrees with this plan of care. This note was dictated using voice recognition software and make contain errors or omissions.
== END 2024-11-28 23:59 | disposition home or self-care (01) ==
PROVIDERS: PCP Physician Assistant; Visit Provider Nurse Practitioner Family
DX: M51.360 Other intervertebral disc degeneration, lumbar region with discogenic back pain only (principal); M54.41 Lumbago with sciatica, right side; G89.29 Other chronic pain; Z79.891 Long term (current) use of opiate analgesic; Z79.899 Other long term (current) drug therapy
CPT/HCPCS: 99212; G0463

== ENCOUNTER 2025-03-17 12:57 | Day surgery (SDC) | payer BC, SELFPAY ==
[2025-03-17 13:01] VITALS: BP 136/70; PULSE 57; RESP 16; O2SAT 94; BMI 31.7
[2025-03-17] MEDS: LIDOCAINE 1% 5ML PF VIAL 5 ML (13:19)
[2025-03-17] MEDS: DEXAMETHASONE 10MG/ML 1ML VIAL 10 MG (13:19)
[2025-03-17] MEDS: BUPIVACAINE 0.25% 10ML INJ 25 MG IJ (13:19)
--- NOTE | 2025-03-17 13:22 | EXP.PAIN.PRO ---
Procedure Date: 03/17/25 Time: 13:10 Anesthesiologist:: Param Caceres CRNA Complications:: None Pre-procedure Diagnosis:: DJD bilateral shoulders. Chronic bilateral shoulder pain. Post-procedure Diagnosis:: Same. Indications for Procedure:: Patient is a pleasant 59-year-old female who comes our clinic today for bilateral intra-articular shoulder injection. Patient describes bilateral shoulder pain as constant, dull, aching. She has 5/5 strength in the bilateral arms. However, limited range of motion in bilateral arms secondary to bilateral shoulder pain. She rates her pain 7/10. Procedure Details:: Procedure Details: Bilateral shoulder intra-articular injection Informed consent was obtained risk and benefits of the procedure were explained to the patient. Patient was taken to the procedure room. The Left shoulder was prepped using ChloraPrep. A 25-gauge needle was used posteriorly to inject 10 mL bupivacaine 0.25% and 10 mg of dexamethasone. Patient tolerated procedure well with no complications. The same procedure was carried out over the right shoulder. Patient tolerated procedure without difficulty. There were no complications. Plan and Disposition:: Patient was discharged without incident.
[2025-03-17 13:24] VITALS: BP 153/77; PULSE 69; RESP 16; O2SAT 94
[2025-03-17 14:39] VITALS: BP 136/70; PULSE 57; RESP 18; O2SAT 94
[2025-03-17 14:50] VITALS: BP 136/70; PULSE 57; RESP 18; O2SAT 94
== END 2025-03-17 13:32 | disposition home or self-care (01) ==
PROVIDERS: Visit Provider Nurse Anesthetist, Certified Registered
DX: M19.011 Primary osteoarthritis, right shoulder (principal); M19.012 Primary osteoarthritis, left shoulder; G89.29 Other chronic pain; I10 Essential (primary) hypertension; F32.A Depression, unspecified; K21.9 Gastro-esophageal reflux disease without esophagitis; F17.200 Nicotine dependence, unspecified, uncomplicated; Z79.1 Long term (current) use of non-steroidal anti-inflammatories (NSAID); Z79.899 Other long term (current) drug therapy
CPT/HCPCS: 20610; J0665; J1100; J2003